=== PATIENT | male | born 1960 | race Caucasian/White ===

== ENCOUNTER 2016-06-29 17:29 | Inpatient (IN) | payer OTHER ==
[2016-06-29 17:43] VITALS: BMI 26.6
[2016-06-29 18:37] LABS: BASOPHIL 1.4 % (0-2.0); EOSINOPHIL 5.9 % (0-4.5); MCH 28.6 pg (25.7-33.7); MCHC 31.9 g/dl (32.0-35.9); MEAN CELL VOLUME 89.8 fl (80-96); MEAN PLT VOLUME 8.7 fl (7.5-11.1); NEUTROPHILS 66.1 % (42.8-82.8); PLATELET COUNT 225 K/MM3 (134-434); RDW 13.8 % (11.9-15.9)
[2016-06-29 19:11] LABS: ALBUMIN 3.5 g/dl (3.4-5.0); CALCIUM 7.9 mg/dL (8.5-10.1); CREATININE 5.3 mg/dL (0.7-1.3)
[2016-06-29 19:15] LABS: INR 1.13 (0.82-1.09); PROTHROMBIN TIME (PATIENT) 12.5 SEC (9.98-11.88)
[2016-06-29 19:16] LABS: BILIRUBIN,TOTAL 0.5 mg/dL (0.2-1.0); TOT PROT 6.1 g/dl (6.4-8.2); TROPONIN I 0.39 ng/ml (0.00-0.05)
--- NOTE | 2016-06-29 19:27 | PDOC ---
History of Present Illness - General History Source: Patient, Old Records Exam Limitations: No Limitations <Henry Heller - Last Filed: 06/29/16 21:08> - General History Source: Patient, Old Records Exam Limitations: No Limitations - History of Present Illness Initial Comments: 06/29/16 19:39 The patient is a 56 year old male, with a significant past medical history of AAA (last checked 6 months ago), current every-day cigarette smoker ( approximately 3-4 cigarettes/day), with a significant past medical history of atrial fibrillation,(+Coumadin) cardiomyopathy, hypertension, hypercholesterolemia and renal insufficiency (5+ creatinine; pre-dialysis, attributed to HTN), who presents to the emergency department with cough, hemoptysis, shortness of breath for the past week and abdominal distention for the past 2 weeks. He reports that his shortness of breath is usually onset on exertion. He states that his cough is productive of blood filled phlegm. He reports that he feels as if his abdominal bloating is causing his shortness of breath exacerbation. He notes that he saw his PMD recently and was scheduled to have an electrocardiogram but have not had it done yet. He denies any recent travel or sick contacts. The patient denies chest pain, headache and dizziness. Denies fever, chills, nausea, vomit, diarrhea and constipation. Denies dysuria, frequency, urgency and hematuria. Allergies: None Known Past Surgical History: Cardiac Cath. CABG. Right elbow surgery (10+ years ago) Social History: Current every-day cigarette smoker (approximately 3-4 cigarettes /day). Occasional ETOH use. He denies recreational drug use. Primary Care Physician: Dr. Trevor Bañuelos <Horace Gilmore - Last Filed: 06/29/16 22:22> - General Chief Complaint: Shortness of Breath Stated Complaint: SHORTNESS OF BREATH Time Seen by Provider: 06/29/16 18:28 Past History - Past Medical History Anemia: No Asthma: No Cancer: No Cardiac Disorders: Yes (CARDIOMYOPATHY, AAA) CVA: No COPD: No CHF: No Dementia: No Diabetes: No GI Disorders: No Disorders: Yes (DECREASED KIDNEY FUNCTION) HTN: Yes Hypercholesterolemia: No Kidney Stones: No Liver Disease: No Suicide Attempt (Hx): No Seizures: No Thyroid Disease: No - Surgical History Abdominal Surgery: No Appendectomy: No Cardiac Surgery: Yes (CARDIAC CATH, bypass) Cholecystectomy: No Lung Surgery: No Neurologic Surgery: No Orthopedic Surgery: Yes (surgery to right elbow 10 years ago) - Reproductive History Testicular Surgery: No - Immunization History Td Vaccination: Yes Immunization Up to Date: Yes - Psycho/Social/Smoking Cessation Hx Anxiety: No Suicidal Ideation: No Smoking History: Former smoker Have you smoked in the past 12 months: No Number of Cigarettes Smoked Daily: 2 If you are a former smoker, when did you quit?: 3 Cigars Per Day: 0 Information on smoking cessation initiated: No Hx Alcohol Use: No Drug/Substance Use Hx: No Substance Use Type: None Hx Substance Use Treatment: Yes <Henry Heller - Last Filed: 06/29/16 21:08> <Horace Gilmore - Last Filed: 06/29/16 22:22> - Past Medical History Allergies/Adverse Reactions: Allergies Allergy/AdvReac Type Severity Reaction Status Date / Time No Known Allergies Allergy Verified 06/29/16 17:43 Home Medications: Ambulatory Orders Metoprolol Succinate [Toprol XL -] 100 mg PO BID 01/17/14 Amlodipine Besylate [Norvasc -] 10 mg PO DAILY 08/18/15 Warfarin Sodium [Coumadin] 2.5 mg PO DAILY 08/18/15 Omeprazole 20 mg PO DAILY 06/29/16 Review of Systems - Review of Systems Able to Perform ROS?: Yes Comments:: 06/29/16 19:39 GENERAL/CONSTITUTIONAL: No fever or chills. No weakness. HEAD, EYES, EARS, NOSE AND THROAT: No change in vision. No ear pain or discharge. No sore throat. CARDIOVASCULAR: +Shortness of breath. No chest pain RESPIRATORY: +Cough, hemoptysis. No wheezing GASTROINTESTINAL: +Abdominal distention. No nausea, vomiting, diarrhea or constipation. GENITOURINARY: No dysuria, frequency, or change in urination. MUSCULOSKELETAL: No joint or muscle swelling or pain. No neck or back pain. SKIN: No rash NEUROLOGIC: No headache, vertigo, loss of consciousness, or change in strength/ sensation. ENDOCRINE: No increased thirst. No abnormal weight change HEMATOLOGIC/LYMPHATIC: No anemia, easy bleeding, or history of blood clots. ALLERGIC/IMMUNOLOGIC: No hives or skin allergy. <Horace Gilmore - Last Filed: 06/29/16 22:22> *Physical Exam - Vital Signs Last Vital Signs Temp Pulse Resp BP Pulse Ox 97.5 F L 112 H 20 156/113 98 06/29/16 17:39 06/29/16 17:39 06/29/16 17:39 06/29/16 17:39 06/29/16 17:39 <Henry Heller - Last Filed: 06/29/16 21:08> - Vital Signs Last Vital Signs Temp Pulse Resp BP Pulse Ox 97.5 F L 112 H 20 156/113 98 06/29/16 17:39 06/29/16 17:39 06/29/16 17:39 06/29/16 17:39 06/29/16 17:39 - Physical Exam Comments: 06/29/16 19:40 GENERAL: Awake, alert, and fully oriented, in no acute distress HEAD: No signs of trauma, normocephalic, atraumatic EYES: PERRLA, EOMI, sclera anicteric, conjunctiva clear ENT: Auricles normal inspection, hearing grossly normal, nares patent, oropharynx clear without exudates. Moist mucosa NECK: Normal ROM, supple, no lymphadenopathy, JVD, or masses LUNGS: No distress, speaks full sentences, clear to auscultation bilaterally HEART: +Irregularly irregular. Normal S1 and S2, no murmurs, rubs or gallops, peripheral pulses normal and equal bilaterally. ABDOMEN: Soft, nontender, normoactive bowel sounds. No guarding, no rebound. No masses EXTREMITIES: Normal inspection, Normal range of motion, no edema. No clubbing or cyanosis. NEUROLOGICAL: Cranial nerves II through XII grossly intact. Normal speech, normal gait, no focal sensorimotor deficits SKIN: Warm, Dry, normal turgor, no rashes or lesions noted. <Horace Gilmore - Last Filed: 06/29/16 22:22> Heart Score/ECG Review #1 ECG reviewed & interpreted by me at: 18:10 06/29/16 19:27 atrial fibrillation 122, no std/deann, QTC 507 msec, normal axis <Henry Heller - Last Filed: 06/29/16 21:08> ED Treatment Course - LABORATORY CBC & Chemistry Diagram: 06/29/16 18:30 06/29/16 18:05 - ADDITIONAL ORDERS Additional order review: Laboratory Results 06/29/16 06/29/16 06/29/16 18:30 18:05 18:05 INR 1.13 D Sodium 146 H Potassium 3.4 L Chloride 111 H Carbon Dioxide 26 Anion Gap 9 BUN 59 H D Creatinine 5.3 H Creat Clearance w eGFR 11.28 Random Glucose 99 Calcium 7.9 L Total Bilirubin 0.5 AST 31 D ALT 76 D Alkaline Phosphatase 96 Creatine Kinase 142 Troponin I 0.39 H B-Natriuretic Peptide 76158.85 H Total Protein 6.1 L Albumin 3.5 06/29/16 18:30 RBC 4.47 MCV 89.8 MCHC 31.9 L RDW 13.8 MPV 8.7 Neutrophils % 66.1 Lymphocytes % 18.0 D Monocytes % 8.6 Eosinophils % 5.9 H Basophils % 1.4 - RADIOLOGY Radiology Studies Ordered: Category Date Time Status ABDOMEN & PELVIS CT W/O CONTR [CT] Stat CT Scan 06/29/16 18:[address] WITHOUT CONTRAST [CT] Stat CT Scan 06/29/16 18:41 Taken <Henry Heller - Last Filed: 06/29/16 21:08> - LABORATORY CBC & Chemistry Diagram: 06/29/16 18:30 06/29/16 18:05 - ADDITIONAL ORDERS Additional order review: Laboratory Results 06/29/16 06/29/16 06/29/16 18:30 18:05 18:05 INR 1.13 D Sodium 146 H Potassium 3.4 L Chloride 111 H Carbon Dioxide 26 Anion Gap 9 BUN 59 H D Creatinine 5.3 H Creat Clearance w eGFR 11.28 Random Glucose 99 Calcium 7.9 L Total Bilirubin 0.5 AST 31 D ALT 76 D Alkaline Phosphatase 96 Creatine Kinase 142 Troponin I 0.39 H B-Natriuretic Peptide 45766.85 H Total Protein 6.1 L Albumin 3.5 06/29/16 18:30 RBC 4.47 MCV 89.8 MCHC 31.9 L RDW 13.8 MPV 8.7 Neutrophils % 66.1 Lymphocytes % 18.0 D Monocytes % 8.6 Eosinophils % 5.9 H Basophils % 1.4 - RADIOLOGY Radiograph Interpretation: 06/29/16 20:[address] without contrast Reviewed by; Dr. Kiesha Henson Impression: Cardiomegaly with small pleural effusions as well as minimal to mild bilateral lower lung field mosaic pattern interstitial thickening which may be on the basis of interstitial pulmonary vascular Congestion. In comparison to a chest MRA exam of 12/30/2013 the patient is status post interval median sternotomy with surgical repair of an ascending aortic cath dissection. Focal bulging is seen along the lateral border of the aortic arch which is difficult to accurately compare to the 2013 MRA exam although was present at least in part at that time. Several mildly prominent mediastinal lymph nodes are seen which are probably hyperplastic. Abdomen and pelvis CT without contrast Reviewed by: Dr. Kiesha Henson Impression: No CT evidence of acute abdomen/pelvic pathology. Several subcentimeter left hepatic lobe hypodense foci are noted probably representing cysts, less likely other pathology. Allowing for motion artifact on 02/05/2011 CT study these apparent cysts were probably present at that time withiut gross interval change. Interval development of cholelithiasis. No biliary tract dilatation is seen. Very small stable umbilical hernia containing fat only. Small stable bilateral inguinal hernias containing fat only. S/p Interval inferior vena cava filter insertion. <Horace Gilmore - Last Filed: 06/29/16 22:22> Medical Decision Making - Medical Decision Making 06/29/16 19:26 A portion of this note was documented by scribe services under my direction. I have reviewed the details of the note, within reason, and agree with the documentation with the following case summary and management plan written by me. Patient treated in the ED. Nursing notes are reviewed and incorporated into the medical decision-making. Vital signs reviewed. Peripheral IV access obtained by the nurse, laboratory studies are drawn and sent, reviewed and interpreted by myself. Vital Signs Temp Pulse Resp BP Pulse Ox 97.5 F L 112 H 20 156/113 98 06/29/16 17:39 06/29/16 17:39 06/29/16 17:39 06/29/16 17:39 06/29/16 17:39 56 year old male with past medical history of cigarette smoking, atrial fibrillation on Coumadin, cardiomyopathy, hypertension, hyperlipidemia, renal sufficiency with a creatinine baseline of 5, not on dialysis yet presents to the emergency department for 3 weeks of hemoptysis. The patient reports that he' s been coughing with hemoptysis. Denies chest pain or shortness of breath. 2 weeks ago, he had visited his primary care physician Dr. Murray who wanted the patient to be seen in the ED but he did not go. Since then, patient reports having abdominal bloating but reports moving his bowels normally. Denies any nausea or vomiting or fevers. Denies chest pain or shortness of breath. Patient is concerned about his AAA as he has a history of a 4.8 cm abdominal aortic aneurysm. He is willing to be worked up and even admitted for further workup. He denies any tuberculosis or pulmonary embolism history. We'll need to further investigate this hemoptysis history. It may be potentially from his Coumadin. However, we'll need to do a x-raying CAT scan to investigate for potentially upper lobe infiltrates. If that is the case, we'll need to rule out tuberculosis. Less likely pulmonary embolism given that the patient is on Coumadin. However, patient is not eligible for CT PE study given his chronic renal sufficiency. May need to consider VQ scan as an inpatient. Patient is also noted to be in atrial fibrillation with mildly rapid ventricular response. We'll need to consider IV diltiazem. Ultimately, the patient should be admitted to the hospital for further evaluation. 06/29/16 21:08 CBC, BMP 06/29/16 18:30 06/29/16 18:05 CMP Sodium 146 mmol/L (136-145) H 06/29/16 18:05 Potassium 3.4 mmol/L (3.5-5.1) L 06/29/16 18:05 Chloride 111 mmol/L (98-107) H 06/29/16 18:05 Carbon Dioxide 26 mmol/L (21-32) 06/29/16 18:05 Anion Gap 9 (8-16) 06/29/16 18:05 BUN 59 mg/dL (7-18) H D 06/29/16 18:05 Creatinine 5.3 mg/dL (0.7-1.3) H 06/29/16 18:05 Creat Clearance w eGFR 11.28 (>60) 06/29/16 18:05 Random Glucose 99 mg/dL (74-106) 06/29/16 18:05 Calcium 7.9 mg/dL (8.5-10.1) L 06/29/16 18:05 Total Bilirubin 0.5 mg/dL (0.2-1.0) 06/29/16 18:05 AST 31 U/L (15-37) D 06/29/16 18:05 ALT 76 U/L (12-78) D 06/29/16 18:05 Alkaline Phosphatase 96 U/L (45-117) 06/29/16 18:05 Creatine Kinase 142 IU/L (39-308) 06/29/16 18:05 Troponin I 0.39 ng/ml (0.00-0.05) H 06/29/16 18:05 B-Natriuretic Peptide 64734.85 pg/ml (5-125) H 06/29/16 18:05 Total Protein 6.1 g/dl (6.4-8.2) L 06/29/16 18:05 Albumin 3.5 g/dl (3.4-5.0) 06/29/16 18:05 06/29/16 21:12 CT chest and abdomen and pelvis reviewed. No abdominal pathology other than liver cysts. Chest CT with cardiomegaly and small pleural effusions bilaterally. Elevated BNP. Likely CHF and CRI. 40 mg IV lasix ordered (pt still urinates). Troponin is 0.39. Last troponin from Mar 2016 was elevated in mid.30s 06/29/16 21:[address] Dias. She accepts to telemetry admission. Requests Dr. Dash, Dr. Bates, Dr. Frederick Greenwood. <Henry Heller - Last Filed: 06/29/16 21:08> - Medical Decision Making 06/29/16 21:28 Dr. Edda Murray was called regarding the patient at 8:54pm. Dr. Funes covering. Dr. Funes was consulted regarding the patient at 9:00pm. [phone] Dr. Hugo Bates was called regarding the patient at 9:22pm. Dr. Morocho covering. Dr. Morocho was consulted regarding the patient at 9:23pm [phone] Dr. Irish Steve was called regarding the patient at 9:16pm Dr. Steve was consulted regarding the patient at 9:58pm [phone] Dr. Dash was called regarding the patient at 9:17pm. Dr. Peacock covering. Dr. Peacock was consulted regarding the patient at 9:36pm [phone] <Horace Gilmore - Last Filed: 06/29/16 22:22> *DC/Admit/Observation/Transfer - Discharge Dispostion Admit: Yes <Henry Heller - Last Filed: 06/29/16 21:08> - Attestations Scribe Attestion: 06/29/16 19:39 Documentation prepared by Horace Gilmore, acting as medical service technician for Henry Heller MD. <Horace Gilmore - Last Filed: 06/29/16 22:22> Diagnosis at time of Disposition: CHF (congestive heart failure) Qualifiers: Congestive heart failure type: unspecified congestive heart failure type Congestive heart failure chronicity: acute Qualified Code(s): I50.9 - Heart failure, unspecified - Referrals
[2016-06-29] MEDS ORDERED: FUROSEMIDE 40 MG/4 ML INJECTABLE VIAL IVPB ONE ×2 (20:27→21:58)
[2016-06-29] MEDS ORDERED: FUROSEMIDE 40 MG/4 ML INJECTABLE VIAL ONE ×2 (20:37→22:38)
[2016-06-29] MEDS ORDERED: ASPIRIN 81 MG CHEWABLE TABLETS PO ONE (21:16)
[2016-06-29] MEDS ORDERED: METOPROLOL SUCCINATE 50 MG TAB.SR.24H (FP) ONE ×2 (22:36→22:42)
[2016-06-29] MEDS ORDERED: ASPIRIN 81 MG CHEWABLE TABLETS ONE (22:38)
[2016-06-29] MEDS ORDERED: ASPIRIN 325 MG ENTERIC COATED TABLET (FP) ONE (22:42)
[2016-06-29] MEDS ORDERED: METOPROLOL SUCCINATE 100 MG TAB.SR.24H (FP) PO ONE (22:54)
[2016-06-30] MEDS ORDERED: guaiFENesin 200 MG/10 ML 10 ML UNIT-DOSE CUPS PO PRN (00:27)
[2016-06-30] MEDS ORDERED: WARFARIN NA 3 MG TABLET PO ONE (00:30)
[2016-06-30] MEDS ORDERED: amLODIPine BESYLATE 10 MG TABLET (FP) PO SCH (00:30)
[2016-06-30 01:43] VITALS: PULSE 108
[2016-06-30 03:10] LABS: TROPONIN I 0.39 ng/ml (0.00-0.05)
[2016-06-30 07:14] LABS: INR 1.29 (0.82-1.09); PROTHROMBIN TIME (PATIENT) 14.3 SEC (9.98-11.88)
[2016-06-30 07:56] VITALS: BP 135/89; TEMP 97.6
[2016-06-30] MEDS ORDERED: METOPROLOL SUCCINATE 100 MG TAB.SR.24H (FP) PO SCH (10:00)
--- NOTE | 2016-06-30 12:25 | EKG ---
Test Reason : Blood Pressure : / mmHG Vent. Rate : 122 BPM Atrial Rate : 117 BPM P-R Int : 000 ms QRS Dur : 102 ms QT Int : 356 ms P-R-T Axes : 000 034 180 degrees QTc Int : 507 ms POOR DATA QUALITY, INTERPRETATION MAY BE ADVERSELY AFFECTED ATRIAL FIBRILLATION WITH RAPID VENTRICULAR RESPONSE POSSIBLE ANTERIOR INFARCT , AGE UNDETERMINED ABNORMAL ECG WHEN COMPARED WITH ECG OF 18-APR-2016 17:27, NONSPECIFIC T WAVE ABNORMALITY, WORSE IN INFERIOR LEADS Confirmed by DELMIS PERKINS MD ([id number]) on 06/30/2016 12:25:32 PM Referred By: Confirmed By:DELMIS PERKINS MD
[2016-06-30] MEDS ORDERED: WARFARIN NA 2.5 MG TABLET (FP) PO SCH (18:00)
--- NOTE | 2016-06-30 21:14 | DS ---
Physical Examination Vital Signs: Vital Signs Temperature 97.6 F 06/30/16 06:40 Pulse Rate 108 H 06/30/16 06:40 Respiratory Rate 18 06/30/16 06:40 Blood Pressure 135/89 06/30/16 06:40 O2 Sat by Pulse Oximetry (%) 96 06/29/16 23:55 Discharge Summary Reason For Visit: CHF Current Active Problems CHF (congestive heart failure) (Acute) Hospital Course: PT LEFT BREFORE BEING SEEN - Instructions Referrals: Edda Murray MD [Primary Care Provider] - Disposition: AGAINST MEDICAL ADVICE - Home Medications Comprehensive Discharge Medication List: Ambulatory Orders Metoprolol Succinate [Toprol XL -] 100 mg PO DAILY 01/17/14 Amlodipine Besylate [Norvasc -] 10 mg PO DAILY 08/18/15 Warfarin Sodium [Coumadin] 2.5 mg PO DAILY 08/18/15 Omeprazole 20 mg PO DAILY 06/29/16
== END 2016-06-30 09:05 | disposition left against medical advice (07) | DRG 293 ==
LOC: JER 17:29 → JERBED 21:00 → UNDOADMIN 21:29 → J4S 06-30 00:20
PROVIDERS: ADMIT Family Medicine; ATTEND Family Medicine
DX: I13.0 Hypertensive heart and chronic kidney disease with heart failure and stage 1 through stage 4 chronic kidney disease, or unspecified chronic kidney disease (principal); I48.91 Unspecified atrial fibrillation; Z79.01 Long term (current) use of anticoagulants; E78.00 Pure hypercholesterolemia, unspecified; I42.9 Cardiomyopathy, unspecified; F17.210 Nicotine dependence, cigarettes, uncomplicated; I50.9 Heart failure, unspecified; N18.9 Chronic kidney disease, unspecified; K40.20 Bilateral inguinal hernia, without obstruction or gangrene, not specified as recurrent; K76.89 Other specified diseases of liver; I71.4 Abdominal aortic aneurysm, without rupture; Z95.1 Presence of aortocoronary bypass graft; Z95.5 Presence of coronary angioplasty implant and graft
CPT/HCPCS: 36415; 71010-TC; 71250-TC; 74176-TC; 80053; 82550; 83880; 84484; 85025; 85610; 93005; 93010; 99285-25

== ENCOUNTER 2016-07-05 19:38 | Inpatient (IN) | payer OTHER ==
[2016-07-05 20:09] VITALS: BMI 27.3
--- NOTE | 2016-07-05 20:11 | PDOC ---
[id number] No Limitations - History of Present Illness Initial Comments: 07/05/16 20:33 The patient is a 56 year old male, with a significant past medical history of AAA (last checked 6 months ago), current every-day cigarette smoker ( approximately 3-4 cigarettes/day), with a significant past medical history of atrial fibrillation,(+Coumadin) cardiomyopathy, hypertension, hypercholesterolemia and renal insufficiency (5+ creatinine; pre-dialysis, attributed to HTN), who presents to the ED sent by Dr. Funes for worsening CHF. Patient was seen in the ER on 06/29/16 for cough, hemoptysis, and SOB, where he had extensive work-up done including chest CT that revealed cardiomegaly and small pleural effusions bilaterally. Patient was admitted for CHF and placed on lasix, however signed out AMA the following day. He returns today after visiting his PMDs office for SOB and chest congestion and was then told to come into the ER. He has complaints of chest congestion, leg swelling, facial swelling over the past 4 days. His facial swelling is resolving on its own. He denies chest pain, SOB, diaphoresis, jaw pain, shoulder pain, arm pain, nausea, and vomiting. He denies any drug use today and states his last se of cocaine was 1 month ago. Patient states he ate a sandwich, orange, and banana today. The patient denies fever, chills, cough, abdominal pain, and diarrhea. The patient denies dysuria, hematuria, urgency, and frequency. Allergies: NKDA Past Surgical History: Cardiac Cath. CABG. Right elbow surgery (10+ years ago) Social History: Current every-day cigarette smoker (approximately 3-4 cigarettes /day). Occasional ETOH use. Drug recreational use (cocaine - last use 1 month ago). Primary Care Physician: Dr. Trevor Bañuelos <Misty Dykes - Last Filed: 07/06/16 00:45> <Nenita Lambert - Last Filed: 07/06/16 02:12> - General Chief Complaint: Congestive Heart Failure Stated Complaint: PCP ADMIT Time Seen by Provider: 07/05/16 20:11 Past History <Misty Dykes - Last Filed: 07/06/16 00:45> - Past Medical History Anemia: No Asthma: No Cancer: No Cardiac Disorders: Yes (CARDIOMYOPATHY, AAA, AFIB) CVA: No COPD: No CHF: No Dementia: No Diabetes: No GI Disorders: No Disorders: Yes (DECREASED KIDNEY FUNCTION) HTN: Yes Hypercholesterolemia: No Kidney Stones: No Liver Disease: No Suicide Attempt (Hx): No Seizures: No Thyroid Disease: No - Surgical History Abdominal Surgery: No Appendectomy: No Cardiac Surgery: Yes (CARDIAC CATH, bypass) Cholecystectomy: No Lung Surgery: No Neurologic Surgery: No Orthopedic Surgery: Yes (surgery to right elbow 10 years ago) - Reproductive History Testicular Surgery: No - Immunization History Td Vaccination: Yes Immunization Up to Date: Yes - Psycho/Social/Smoking Cessation Hx Anxiety: No Suicidal Ideation: No Smoking History: Former smoker Have you smoked in the past 12 months: Yes Number of Cigarettes Smoked Daily: 2 If you are a former smoker, when did you quit?: 3 months ago Cigars Per Day: 0 Information on smoking cessation initiated: No Hx Alcohol Use: No Drug/Substance Use Hx: No Substance Use Type: None Hx Substance Use Treatment: Yes <Nenita Lambert - Last Filed: 07/06/16 02:12> - Past Medical History Allergies/Adverse Reactions: Allergies Allergy/AdvReac Type Severity Reaction Status Date / Time No Known Allergies Allergy Verified 07/05/16 19:59 Home Medications: Ambulatory Orders Metoprolol Succinate [Toprol XL -] 100 mg PO DAILY 01/17/14 Amlodipine Besylate [Norvasc -] 10 mg PO DAILY 08/18/15 Warfarin Sodium [Coumadin] 2.5 mg PO DAILY 08/18/15 Omeprazole 20 mg PO DAILY 06/29/16 Review of Systems - Review of Systems Able to Perform ROS?: Yes Comments:: 07/05/16 20:42 CONSTITUTIONAL: Absent: fever, chills, diaphoresis, generalized weakness, malaise, loss of appetite HEENT: +facial swelling Absent: rhinorrhea, nasal congestion, throat pain, throat swelling, difficulty swallowing, mouth swelling, ear pain, eye pain, visual Changes CARDIOVASCULAR: +leg swelling Absent: chest pain, syncope, palpitations, irregular heart rate, lightheadedness RESPIRATORY: +chest congestion, SOB Absent: cough, dyspnea with exertion, orthopnea, wheezing, stridor, hemoptysis GASTROINTESTINAL: Absent: abdominal pain, abdominal distension, nausea, vomiting, diarrhea, constipation, melena, hematochezia GENITOURINARY: Absent: dysuria, frequency, urgency, hesitancy, hematuria, flank pain, genital pain MUSCULOSKELETAL: Absent: myalgia, arthralgia, joint swelling SKIN: Absent: rash, itching, pallor ENDOCRINE: Absent: unexplained weight gain, unexplained weight loss, heat intolerance, cold intolerance NEUROLOGIC: Absent: headache, focal weakness or paresthesias, dizziness, unsteady gait, seizure, mental status changes, bladder or bowel incontinence PSYCHIATRIC: Absent: anxiety, depression, suicidal or homicidal ideation, hallucinations. <Misty Dykes - Last Filed: 07/06/16 00:45> *Physical Exam - Vital Signs Last Vital Signs Temp Pulse Resp BP Pulse Ox 97.9 F 118 H 21 138/106 94 L 07/05/16 20:00 07/05/16 20:30 07/05/16 20:30 07/05/16 20:30 07/05/16 20:30 - Physical Exam Comments: 07/06/16 00:46 GENERAL: Pt is afebrile. Well developed, well nourished. Awake and alert. No acute distress. HEENT: Normocephalic, atraumatic. PERRLA, EOMI. No conjunctival pallor. Sclera are non- icteric. Moist mucous membranes. Oropharynx is clear. NECK: Supple. Full ROM. No JVD. Carotid pulses 2+ and symmetric, without bruits. No thyromegaly. No lymphadenopathy. CARDIOVASCULAR: Irregularly irregular. No murmurs, rubs, or gallops. Distal pulses are 2+ and symmetric. Well healed midsternal surgical scar. PULMONARY: No evidence of respiratory distress. Lungs clear to auscultation bilaterally. No wheezing, rales or rhonchi. ABDOMINAL: Soft. Non-tender. Non-distended. No rebound or guarding. No organomegaly. Normoactive bowel sounds. MUSCULOSKELETAL Normal range of motion at all joints. No bony deformities or tenderness. No CVA tenderness. EXTREMITIES: No cyanosis. No clubbing. Bilateral pitting edema, left ankle more swollen than right ankle. No calf tenderness. SKIN: Warm and dry. Normal capillary refill. No rashes. No jaundice. NEUROLOGICAL: Alert, awake, appropriate. Cranial nerves 2-12 intact. No deficits to light touch and temperature in face, upper extremities and lower extremities. No motor deficits in the in face, upper extremities and lower extremities. Normoreflexic in the upper and lower extremities. Normal speech. PSYCHIATRIC: Cooperative. Good eye contact. Appropriate mood and affect. <Misty Dykes - Last Filed: 07/06/16 00:45> - Vital Signs Last Vital Signs Temp Pulse Resp BP Pulse Ox 97.9 F 62 18 140/80 99 07/05/16 20:00 07/05/16 20:00 07/05/16 20:00 07/05/16 20:00 07/05/16 20:00 <Nenita Lambert - Last Filed: 07/06/16 02:12> ED Treatment Course - LABORATORY CBC & Chemistry Diagram: 07/05/16 21:00 07/05/16 21:00 <Misty Dykes - Last Filed: 07/06/16 00:45> - LABORATORY CBC & Chemistry Diagram: 07/05/16 21:00 07/05/16 21:00 <Nenita Lambert - Last Filed: 07/06/16 02:12> Medical Decision Making - Medical Decision Making 07/05/16 22:29 Patient's case discussed with Dr. Isidro Maria at 22:29 <Misty Dykes - Last Filed: 07/06/16 00:45> - Medical Decision Making 07/06/16 01:34 Pt comes in because he still has SOB. States that he was admitted in the hospital for SOB last week and that he signed AMA, as it seemed all the docs were doing was giving him lasix, and he felt that the talent acquisition sourcer and moth exterminator never came to see him. Pt returned to his doctors office today for SOB, and he was asked to retunr to the ER for admission, as he needs to be worked up by nephrology and talent acquisition sourcer in the hospital. He has years of renal insufficiency that is progressing to renal failure. In the ER, pt doesn't appear so bad; lungs are relatively clear on exam, however pt states that he cannot walk without getting SOB. No chest pain and no flank pain and no fever. Pt's cough and hemoptysis resolved. Pt's CXR has clear lung carballo and cardiomegaly. 07/06/16 02:08 Labs are similar to old ones on file, however BNP is getting worse. Trop remains elevated secondary to uremia. CPK is normal, BUN/Cr are elevated. 07/06/16 02:12 EKG on arrival shows rapid atrial fibrillation. <Nenita Lambert - Last Filed: 07/06/16 02:12> *DC/Admit/Observation/Transfer - Attestations Scribe Attestion: 07/05/16 20:42 Documentation prepared by Misty Dykes, acting as medical csr for Nenita Lambert MD <Misty Dykes - Last Filed: 07/06/16 00:45> - Discharge Dispostion Admit: Yes <Nenita Lambert - Last Filed: 07/06/16 02:12> Diagnosis at time of Disposition: Atrial fibrillation, CHF (congestive heart failure), Chronic renal insufficiency - Referrals
[2016-07-05] MEDS ORDERED: FUROSEMIDE 40 MG/4 ML INJECTABLE VIAL IVPUSH ONE (20:25)
[2016-07-05] MEDS ORDERED: SODIUM CHLORIDE 0.9% 500 ML INFUS.BAG IV ONE (20:26)
[2016-07-05] MEDS ORDERED: NITROGLYCERIN 2% OINTMENT - 1GM PACKET TD ONE ×2 (20:28→20:33)
[2016-07-05] MEDS ORDERED: FUROSEMIDE 40 MG/4 ML INJECTABLE VIAL ONE (20:34)
[2016-07-05 21:09] LABS: BASOPHIL 0.8 % (0-2.0); EOSINOPHIL 7.4 % (0-4.5); MCH 29.2 pg (25.7-33.7); MCHC 32.5 g/dl (32.0-35.9); MEAN PLT VOLUME 9.2 fl (7.5-11.1); NEUTROPHILS 65.6 % (42.8-82.8); PLATELET COUNT 176 K/MM3 (134-434); RDW 14.3 % (11.9-15.9)
[2016-07-05 21:32] LABS: ALBUMIN 3.4 g/dl (3.4-5.0); CALCIUM 7.9 mg/dL (8.5-10.1); CREATININE 4.7 mg/dL (0.7-1.3)
[2016-07-05 21:36] LABS: BILIRUBIN,TOTAL 0.5 mg/dL (0.2-1.0); TOT PROT 6.2 g/dl (6.4-8.2); TROPONIN I 0.33 ng/ml (0.00-0.05)
[2016-07-05 21:44] LABS: URINE APPEARANCE CLEAR; URINE BILIRUBIN NEGATIVE (NEGATIVE); URINE BLOOD NEGATIVE (NEGATIVE); URINE COLOR LTYELLOW; URINE GLUCOSE (UA) 1+ (NEGATIVE); URINE KETONE NEGATIVE (NEGATIVE); URINE LEUK ESTERASE NEGATIVE (NEGATIVE); URINE NITRITE NEGATIVE (NEGATIVE); URINE UROBILINOGEN NEGATIVE E.U./dl (0.2-1.0)
[2016-07-05 21:45] LABS: PROTHROMBIN TIME (PATIENT) 47.7 SEC (9.98-11.88)
[2016-07-05 21:47] LABS: URINE PROTEIN 2+ (NEGATIVE)
[2016-07-05 21:48] LABS: URINE RBC <1 /hpf (0-3); URINE WBC 1 /hpf (3-5)
[2016-07-05 22:09] LABS: INR 4.21 (0.82-1.09)
[2016-07-06] MEDS ORDERED: ZOLPIDEM TARTRATE 5 MG TABLET PO ONE (02:11)
[2016-07-06] MEDS ORDERED: dilTIAZem HCL 50 MG/10 ML - 10 ML VIAL IVPUSH ONE ×2 (07:19→08:01)
[2016-07-06] MEDS ORDERED: dilTIAZem HCL 125 MG/25 ML - 25 ML VIAL ONE ×2 (07:22→08:07)
[2016-07-06] MEDS ORDERED: ALBUTEROL SO4 0.083% IH SOL 2.5 MG/3 ML VIAL.NEB. NEB ONE (07:26)
[2016-07-06 07:46] LABS: EOSINOPHIL 11.3 % (0-4.5); MCH 30.1 pg (25.7-33.7); MCHC 33.5 g/dl (32.0-35.9); MEAN CELL VOLUME 89.9 fl (80-96); MEAN PLT VOLUME 8.9 fl (7.5-11.1); PLATELET COUNT 143 K/MM3 (134-434); RDW 14.1 % (11.9-15.9); WHITE BLOOD COUNT 6.3 K/mm3 (4.0-10.0)
[2016-07-06 07:51] LABS: INR 3.88 (0.82-1.09); PROTHROMBIN TIME (PATIENT) 43.9 SEC (9.98-11.88)
[2016-07-06] MEDS ORDERED: dilTIAZem HCL 60 MG TABLET (FP) PO ONE (08:01)
[2016-07-06] MEDS ORDERED: dilTIAZem HCL 60 MG TABLET (FP) ONE (08:02)
--- NOTE | 2016-07-06 08:03 | PDOC ---
*Physical Exam - Vital Signs Last Vital Signs Temp Pulse Resp BP Pulse Ox 97.8 F 104 H 20 146/129 95 07/06/16 07:00 07/06/16 07:25 07/06/16 07:25 07/06/16 07:25 07/06/16 07:25 - Physical Exam Comments: 07/06/16 08:01 irregular tachycardia at 135, BP elevated 150 systolic ED Treatment Course - LABORATORY CBC & Chemistry Diagram: 07/06/16 07:11 07/05/16 21:00 - ADDITIONAL ORDERS Additional order review: Laboratory Results 07/05/16 07/05/16 07/05/16 21:15 21:00 21:00 INR 4.21 H* D PTT (Actin FS) Sodium Potassium Chloride Carbon Dioxide Anion Gap BUN Creatinine Creat Clearance w eGFR Random Glucose Calcium Total Bilirubin AST ALT Alkaline Phosphatase Creatine Kinase Creatine Kinase Index CK-MB (CK-2) CK-MB (CK-2) Rel Index Cancelled Troponin I B-Natriuretic Peptide Total Protein Albumin Urine Color Ltyellow Urine Appearance Clear Urine pH 6.0 Ur Specific Jackhorn 1.016 Urine Protein 2+ H Urine Glucose (UA) 1+ H Urine Ketones Negative Urine Blood Negative Urine Nitrite Negative Urine Bilirubin Negative Urine Urobilinogen Negative Ur Leukocyte Esterase Negative Urine RBC <1 Urine WBC 1 Ur Epithelial Cells Rare 07/05/16 07/05/16 07/05/16 21:00 21:00 21:00 INR PTT (Actin FS) 45.2 H Sodium 144 Potassium 3.3 L Chloride 109 H Carbon Dioxide 26 Anion Gap 9 BUN 51 H Creatinine 4.7 H Creat Clearance w eGFR 12.96 Random Glucose 100 Calcium 7.9 L Total Bilirubin 0.5 AST 14 L D ALT 35 D Alkaline Phosphatase 87 Creatine Kinase 170 D Creatine Kinase Index 2.3 CK-MB (CK-2) 3.889 H CK-MB (CK-2) Rel Index Troponin I 0.33 H B-Natriuretic Peptide 48492.24 H Total Protein 6.2 L Albumin 3.4 Urine Color Urine Appearance Urine pH Ur Specific Jackhorn Urine Protein Urine Glucose (UA) Urine Ketones Urine Blood Urine Nitrite Urine Bilirubin Urine Urobilinogen Ur Leukocyte Esterase Urine RBC Urine WBC Ur Epithelial Cells 07/05/16 21:00 RBC 4.35 MCV 90.0 MCHC 32.5 RDW 14.3 MPV 9.2 Neutrophils % 65.6 Lymphocytes % 12.8 D Monocytes % 13.4 H Eosinophils % 7.4 H Basophils % 0.8 - Medications Given in the ED: ED Medications Discontinued Medications Generic Name Dose Route Start Last Admin Trade Name Juanis PRN Reason Stop Dose Admin Diltiazem HCl 15 mg 07/06/16 07:19 07/06/16 07:22 Cardizem Injection - IVPUSH 07/06/16 07:20 15 mg ONCE ONE Administration Diphenhydramine HCl 50 mg 07/06/16 05:46 07/06/16 06:08 Benadryl Injection - IVPB 07/06/16 05:47 50 mg ONCE ONE Administration Furosemide 40 mg 07/05/16 20:25 07/05/16 21:05 Lasix Injection - IVPUSH 07/05/16 20:26 40 mg ONCE ONE Administration Nitroglycerin 0.5 inch 07/05/16 20:28 07/05/16 21:06 Nitro-Bid 2% Paste - TD 07/05/16 20:29 0.5 inch ONCE ONE Administration Sodium Chloride 250 ml 07/05/16 20:26 07/05/16 21:05 Normal Saline - IV 07/05/16 20:27 250 ml ONCE ONE Administration Zolpidem Tartrate 10 mg 07/06/16 02:11 07/06/16 02:28 Ambien - PO 07/06/16 02:12 10 mg ONCE ONE Administration Medical Decision Making - Critical Care Time Total Critical Care Time (minutes): 45 Critical Care Statement: The care of this patient involved high complexity decision making to prevent further life threatening deterioration of the patient 's condition and/or to evalute & treat vital organ system(s) failure or risk of failure. - Medical Decision Making 07/06/16 08:02 56-year-old male who presented with CHF exacerbation, was admitted to telemetry and is awaiting a bed. Called to bedside to evaluate patient for rapid atrial fibrillation. Vital signs as noted. Initial bolus of Cardizem 15 mg intravenously temporarily improved heart rate to 102, tolerated well in terms of blood pressure still at 140 systolic. Heart rate returned to 135, blood pressure remains elevated, we'll give another dose of 15 mg Cardizem intravenously with oral dose. Dr. Morocho of cardiology has been consulted and called. *DC/Admit/Observation/Transfer Diagnosis at time of Disposition: Atrial fibrillation, CHF (congestive heart failure), Chronic renal insufficiency
[2016-07-06 08:08] LABS: ALBUMIN 3.1 g/dl (3.4-5.0); CALCIUM 7.7 mg/dL (8.5-10.1)
[2016-07-06 08:14] LABS: BILIRUBIN,TOTAL 0.6 mg/dL (0.2-1.0); CREATININE 4.3 mg/dL (0.7-1.3); TOT PROT 5.5 g/dl (6.4-8.2); TROPONIN I 0.34 ng/ml (0.00-0.05)
[2016-07-06] MEDS ORDERED: amLODIPine BESYLATE 5 MG TABLET (FP) ONE (09:28)
[2016-07-06] MEDS ORDERED: FUROSEMIDE 40 MG/4 ML INJECTABLE VIAL ONE (09:28)
[2016-07-06] MEDS: FUROSEMIDE 40 MG/4 ML INJECTABLE VIAL IVPUSH SCH (09:29)
[2016-07-06] MEDS ORDERED: amLODIPine BESYLATE 10 MG TABLET (FP) PO SCH (10:00)
--- NOTE | 2016-07-06 11:07 | CONSULT ---
Consult - text type - Consultation Consultation Note: Renal Consult for CKD Stage 5/Volume Overload This is a 56 year old Gentleman with PMhx of CKD 4/5, Hypertension, AAA, Afib on a/c, Hx of DVT, CHF, Current smoker who presented to the ED at the request of his PMD with worry for CHF and found to have BUN/cr of 51/4.7. Pt s/p ED visit last week for acute CHF that required IV diuretics but pt signed out AMA. Cr was 6.3 during prior visit. Pt follows with Dr. Irish Wynn for his kidney function. Pt denies any nsaids, recent contrast exposure. No flank pain, dark urine. No SOB or chest pain at this time. No confusion or lethargy. No N/V/D. No fever or chills. Pt was not on diuretics at home. PMHx: as above Allergies: NKDA Social Hx: + Tobacco. Family hx: NC ROS: as per HPI, all other ROS negative Home Meds: Medication Instructions Recorded Metoprolol Succinate [Toprol XL -] 100 mg PO DAILY 01/17/14 Amlodipine Besylate [Norvasc -] 10 mg PO DAILY 08/18/15 Warfarin Sodium [Coumadin] 2.5 mg PO DAILY 08/18/15 Omeprazole 20 mg PO DAILY 06/29/16 Vital Signs Temperature 97.8 F 07/06/16 07:00 Pulse Rate 95 H 07/06/16 08:34 Respiratory Rate 18 07/06/16 08:34 Blood Pressure 124/90 07/06/16 08:34 O2 Sat by Pulse Oximetry (%) 99 07/06/16 08:34 Intake & Output 07/03/16 07/04/16 07/05/16 07/06/16 23:59 23:59 23:59 23:59 Weight 185 lb Gen: NAD, awake and alert HEENT: NC/AT, MMM, No JVD CVS: RRR, No M/R Lungs: Dec BS at lung bases Abd: soft NT/ND Ext: Trace to 1+ edema : No bladder distension Neuro: AAOX3, no focal defects CBC, BMP 07/06/16 07:11 07/06/16 07:11 Current Medications Amlodipine Besylate (Norvasc -) 10 mg PO DAILY [facility] Last Admin: 07/06/16 09:29 Dose: 10 mg Furosemide (Lasix Injection -) 40 mg IVPUSH DAILY [facility] Last Admin: 07/06/16 09:29 Dose: 40 mg Metoprolol Succinate (Toprol Xl -) 100 mg PO DAILY [facility] A/P 56 year old Gentleman with PMhx of CKD 4/5, Hypertension, AAA, Afib on a/c, Hx of DVT, CHF, Current smoker who presented to the ED at the request of his PMD with worry for CHF and found to have BUN/cr of 51/4.7 #CKD Stage 5 with fluctuating Cr over the past several months Etiology of CKD is Hypertensive Nephropathy as per History Varying Cr values likely related to volume status (pt with acute decompenated CHF last admission and Cr was 6.3) No acute indication for [employer] at this time but will need dialysis planning Check UA, UPCR, Renal US Pt would benefit from diuretics to prevent volume overload Avoid nsaids, Philip/ARBs Avoid contrast Dose all meds for Cr Cl less then 15 #CHF/AAA Check ECHO Start Lasix 40mg Daily (likely will need to titrate up given very low GFR) Cardiology evaluation #Hypokalemia secondary to diuretics and renal K loss give KCL 40meq x 1 Monitor K and Mg levels #Hypertension Continue Amlodpine and Metoprolol #Afib on Warfain #Hx of DVT on Warfarin Thank you Will follow Amari Arredondo DO
[2016-07-06] MEDS ORDERED: POTASSIUM CHLORIDE TABS 20 MEQ TABLET.ER (FP) PO ONE ×2 (11:11→13:37)
[2016-07-06] MEDS: METOPROLOL SUCCINATE 100 MG TAB.SR.24H (FP) PO SCH ×3 (11:42→22:34)
--- NOTE | 2016-07-06 11:55 | EKG ---
Test Reason : Blood Pressure : / mmHG Vent. Rate : 116 BPM Atrial Rate : 096 BPM P-R Int : 000 ms QRS Dur : 106 ms QT Int : 322 ms P-R-T Axes : 000 -48 169 degrees QTc Int : 447 ms ATRIAL FIBRILLATION WITH RAPID VENTRICULAR RESPONSE WITH PREMATURE VENTRICULAR OR ABERRANTLY CONDUCTED COMPLEXES LEFT AXIS DEVIATION INCOMPLETE LEFT BUNDLE BRANCH BLOCK ABNORMAL ECG WHEN COMPARED WITH ECG OF 29-JUN-2016 18:03, QRS AXIS SHIFTED LEFT Confirmed by ELIN CARRASCO, CHARLES ([id number]) on 07/06/2016 11:55:18 AM Referred By: Confirmed By:CHARLES WORTHINGTON MD
[2016-07-06] MEDS ORDERED: METOPROLOL SUCCINATE 50 MG TAB.SR.24H (FP) ONE ×2 (15:26→22:23)
[2016-07-06 15:28] LABS: TROPONIN I 0.34 ng/ml (0.00-0.05)
--- NOTE | 2016-07-06 15:37 | CONSULT ---
Consult Consult Specialty:: Cardiology Referred by:: Isidro Maria MD Reason for Consultation:: Rapid afib, PVC - History of Present Illness Chief Complaint: Exertional fatigue History of Present Illness: This is a 56 year old Gentleman with h/o ascending aortic dissection with tamponade s/p hemiarch repair, suspension of [place] AV and pericardial window 2013, angina pectoris, CKD 4/5, Hypertension/HCVD, HLD, Afib on a/c, Hx of DVT, non-ischemic cardiomyopathy, current smoker, cocaine abuse last 1 month ago, referred for exertional fatigue and found to be in rapid afib 120-130s, denies SOB, chest pain, near or true syncope, palpitations, orthopnea, PND or LE edema. Previous patient of Dr. Jimy Morales of [facility], but has not seen for 4 years. He reports medication and diet compliance, admits to cocaine abuse last 1 month ago, abstinent since then. PMHx: as above Allergies: NKDA Social Hx: + Tobacco, + cocaine 1 month ago. Family hx: NC ROS: as per HPI, all other ROS negative - History Source History Provided By: Patient Limitations to Obtaining History: No Limitations - Past Medical History Cardio/Vascular: Yes: AFIB, CAD, CHF, HTN, Hyperlipdemia, Mitral Insufficiency - Past Surgical History Past Surgical History: Yes: CABG - Alcohol/Substance Use Hx Alcohol Use: No - Smoking History Smoking history: Former smoker Have you smoked in the past 12 months: Yes Aproximately how many cigarettes per day: 2 If you are a former smoker, when did you quit?: 3 months ago Home Medications - Allergies Allergies/Adverse Reactions: Allergies Allergy/AdvReac Type Severity Reaction Status Date / Time No Known Allergies Allergy Verified 07/05/16 19:59 - Home Medications Home Medications: Ambulatory Orders Metoprolol Succinate [Toprol XL -] 100 mg PO BID 01/17/14 Amlodipine Besylate [Norvasc -] 10 mg PO DAILY 08/18/15 Warfarin Sodium [Coumadin] 2.5 mg PO DAILY 08/18/15 Omeprazole 20 mg PO DAILY 06/29/16 Review of Systems - Review of Systems Constitutional: reports: Other (Fatigue) Vital Signs: Vital Signs Temperature 97.8 F 07/06/16 07:00 Pulse Rate 90 07/06/16 12:30 Respiratory Rate 19 01/18/17 12:30 Blood Pressure 144/96 07/06/16 12:30 O2 Sat by Pulse Oximetry (%) 96 07/06/16 12:30 Constitutional: Yes: No Distress, Calm Neck: Yes: Supple Respiratory: Yes: Regular, CTA Bilaterally Gastrointestinal: Yes: Normal Bowel Sounds, Soft Cardiovascular: Yes: Tachycardia, Pulse Irregular JVD: Yes Carotid Bruit: No Heart Sounds: Yes: S1, S2 Murmur: Yes: Systolic Murmur, Grade 2 Edema: Yes Edema: LLE: Trace, RLE: Trace - Other Data Labs, Other Data: CBC, BMP 07/06/16 07:11 07/06/16 07:11 INR, PTT INR 3.88 (0.82-1.09) H 07/06/16 07:20 Troponin, BNP 07/06/16 07/06/16 07:11 14:41 Troponin I 0.34 H 0.34 H Troponin, BNP 07/06/16 07/06/16 07:11 14:41 Troponin I 0.34 H 0.34 H Afib @ 116 PVC Ejection Fraction %: LVEF < 40 % Imaging - Results Chest X-ray: Report Reviewed (NAD) Ultrasound: Report Reviewed (Small right effusion, echogenic kidneys) Problem List - Problems (1) Atrial fibrillation Code(s): I48.91 - UNSPECIFIED ATRIAL FIBRILLATION Qualifiers: Atrial fibrillation type: persistent Qualified Code(s): I48.1 - Persistent atrial fibrillation (2) Chronic renal insufficiency Code(s): N18.9 - CHRONIC KIDNEY DISEASE, UNSPECIFIED Qualifiers: Chronic kidney disease stage: stage 4 (severe) Qualified Code(s): N18.4 - Chronic kidney disease, stage 4 (severe) (4) S/P aortic dissection repair Code(s): Z98.89 - OTHER SPECIFIED POSTPROCEDURAL STATES * DO NOT USE * (5) Hypertensive cardiomegaly with heart failure Code(s): I11.0 - HYPERTENSIVE HEART DISEASE WITH HEART FAILURE (6) Mitral regurgitation Code(s): I34.0 - NONRHEUMATIC MITRAL (VALVE) INSUFFICIENCY Qualifiers: Cardiac valve disease etiology: nonrheumatic Qualified Code(s): I34.0 - Nonrheumatic mitral (valve) insufficiency (7) Nonischemic cardiomyopathy Code(s): I42.9 - CARDIOMYOPATHY, UNSPECIFIED Assessment/Plan 07/06/2016 Echo: Dilated severely decreased LV fxn, severe eccentric MR, mod- severe TR, AR, mod-severe DANE 1. Fatigue referable to persistent afib with RVR on coumadin with supratherapeutic INR 2. Type A dissection with tamponade s/p valve sparing hemiarch repair and pericardial window 3. Non-ischemic cardiomyopathy with MR, TR, AR 4. HTN/HCVD 5. CKD 6. AAA 7. DVT 8. Tobacco and former cocaine abuse P:1. Continue Toprol XL 100 bid, add amio 200 bid, change Norvasc to BiDil with uptitration as tolerated 2. Started Lasix, Demadex may be better option, monitor diuretic response, renal fxn and electrolytes, replete K>4.5 Mg>2.5 as needed 3. Coumadin per INR 4. Will benefit from ICD for primary prophylaxis once euvolemic and rate- controlled 5. Thank you for consultative opportunity
[2016-07-06] MEDS ORDERED: ISOSORBIDE MONONITRATE 60 MG TAB.SR.24H (FP) PO ONE (16:24)
[2016-07-06] MEDS: ISOSORBIDE MONONITRATE 30 MG TAB.SR.24H (FP) PO SCH (16:25)
[2016-07-06] MEDS: AMIODARONE HCL 200 MG TABLET (FP) PO SCH ×2 (16:25→22:33)
[2016-07-06] MEDS ORDERED: AMIODARONE HCL 200 MG TABLET (FP) ONE ×2 (16:25→22:23)
--- NOTE | 2016-07-06 20:07 | PN ---
Progress Note, Physician Chief Complaint: Pt seen and examined,Pt feels better No chest pain,sob improved Leg sweliing improved cardiology and renal note appreciated ECHo report shows dialated severly decreased LV function,sever eccentric MR, moderate to severe TR,AR NOn Ischemic cardiopathy with MR,TR,AR renal sonogram echogenic kidney with medical renal disease - Current Medication List Current Medications: Active Medications Amiodarone HCl (Cordarone -) 200 mg PO BID [facility] Last Admin: 07/06/16 16:25 Dose: 200 mg Furosemide (Lasix Injection -) 40 mg IVPUSH DAILY [facility] Last Admin: 07/06/16 09:29 Dose: 40 mg Hydralazine HCl (Apresoline -) 25 mg PO BID [facility] Isosorbide Mononitrate (Imdur -) 30 mg PO DAILY [facility] Last Admin: 07/06/16 16:25 Dose: 30 mg Metoprolol Succinate (Toprol Xl -) 100 mg PO BID [facility] - Objective Vital Signs: Vital Signs Temperature 97.8 F 07/06/16 07:00 Pulse Rate 105 H 07/06/16 17:09 Respiratory Rate 18 07/06/16 17:09 Blood Pressure 139/93 07/06/16 17:09 O2 Sat by Pulse Oximetry (%) 99 07/06/16 17:09 Constitutional: Yes: No Distress Eyes: Yes: Conjunctiva Clear HENT: Yes: Atraumatic, Normocephalic Neck: Yes: Supple Cardiovascular: Yes: Pulse Irregular Respiratory: Yes: Regular, CTA Bilaterally Gastrointestinal: Yes: Normal Bowel Sounds, Soft Musculoskeletal: Yes: WNL Extremities: Yes: WNL Edema: Yes Edema: LLE: Trace, RLE: Trace Peripheral Pulses WNL: Yes Neurological: Yes: WNL ...Motor Strength: WNL Psychiatric: Yes: WNL, Alert Labs: CBC, BMP 07/06/16 07:11 07/06/16 07:11 INR, PTT INR 3.88 (0.82-1.09) H 07/06/16 07:20 - ....Imaging Chest X-ray: Report Reviewed EKG: Report Reviewed Assessment/Plan ATrial fibrillation CHF, CRF s/p aortic dissection repair Fatigue hypercholestrolemia PLAN Continue medications Will f/u Labs will f/u cardiolgy and renal rec monitor urine output monitor PT and INR
[2016-07-06] MEDS ORDERED: hydrALAZINE HCL 25 MG TABLET (FP) ONE (22:23)
[2016-07-06] MEDS: hydrALAZINE HCL 25 MG TABLET (FP) PO SCH (22:33)
[2016-07-07] MEDS ORDERED: ALBUTEROL SO4 2.5/IPRATROPIUM 0.5 INH SOL 3 ML VIAL.NEB. NEB PRN (01:48)
[2016-07-07] MEDS: ZOLPIDEM TARTRATE 5 MG TABLET PO PRN ×2 (01:59→22:16)
[2016-07-07 07:30] LABS: BASOPHIL 0.9 % (0-2.0); EOSINOPHIL 13.7 % (0-4.5); MCHC 33.6 g/dl (32.0-35.9); MEAN CELL VOLUME 89.4 fl (80-96); MEAN PLT VOLUME 9.5 fl (7.5-11.1); NEUTROPHILS 57.5 % (42.8-82.8); PLATELET COUNT 189 K/MM3 (134-434); RDW 14.1 % (11.9-15.9); WHITE BLOOD COUNT 6.8 K/mm3 (4.0-10.0)
[2016-07-07 07:31] LABS: INR 2.45 (0.82-1.09); PROTHROMBIN TIME (PATIENT) 27.4 SEC (9.98-11.88)
[2016-07-07 07:58] LABS: CALCIUM 7.7 mg/dL (8.5-10.1); CREATININE 4.2 mg/dL (0.7-1.3); MAGNESIUM 2.1 mg/dL (1.8-2.4); PHOSPHOROUS 3.7 mg/dL (2.5-4.9)
[2016-07-07 08:07] LABS: THYROID STIMULATING HORMONE 1.85 uIU/ml (0.358-3.74)
[2016-07-07 09:23] LABS: URINE APPEARANCE CLEAR; URINE BILIRUBIN NEGATIVE (NEGATIVE); URINE BLOOD NEGATIVE (NEGATIVE); URINE COLOR LTYELLOW; URINE GLUCOSE (UA) NEGATIVE (NEGATIVE); URINE KETONE NEGATIVE (NEGATIVE); URINE LEUK ESTERASE NEGATIVE (NEGATIVE); URINE NITRITE NEGATIVE (NEGATIVE); URINE UROBILINOGEN NEGATIVE E.U./dl (0.2-1.0)
--- NOTE | 2016-07-07 09:23 | PN ---
Progress Note, Physician Chief Complaint: Pt seen and examined,Pt feels better No chest pain,sob improved Leg sweliing improved cardiology and renal note appreciated ECHo report shows dialated severly decreased LV function,sever eccentric MR, moderate to severe TR,AR NOn Ischemic cardiopathy with MR,TR,AR renal sonogram echogenic kidney with medical renal disease - Current Medication List Current Medications: Active Medications Albuterol/Ipratropium (Duoneb -) 1 amp NEB Q6H PRN Last Admin: 07/07/16 02:19 Dose: 1 amp Amiodarone HCl (Cordarone -) 200 mg PO BID ON LICENSE OF [facility] Last Admin: 07/06/16 22:33 Dose: 200 mg Furosemide (Lasix Injection -) 40 mg IVPUSH DAILY ON LICENSE OF [facility] Last Admin: 07/06/16 09:29 Dose: 40 mg Hydralazine HCl (Apresoline -) 25 mg PO BID ON LICENSE OF [facility] Last Admin: 07/06/16 22:33 Dose: 25 mg Isosorbide Mononitrate (Imdur -) 30 mg PO DAILY ON LICENSE OF [facility] Last Admin: 07/06/16 16:25 Dose: 30 mg Metoprolol Succinate (Toprol Xl -) 100 mg PO BID ON LICENSE OF [facility] Last Admin: 07/06/16 22:34 Dose: 100 mg Zolpidem Tartrate (Ambien -) 10 mg PO HS PRN Last Admin: 07/07/16 01:59 Dose: 10 mg - Objective Vital Signs: Vital Signs Temperature 97.7 F 07/07/16 02:00 Pulse Rate 121 H 07/07/16 02:00 Respiratory Rate 20 07/07/16 02:00 Blood Pressure 138/98 07/07/16 02:00 O2 Sat by Pulse Oximetry (%) 99 07/07/16 06:00 Constitutional: Yes: No Distress Eyes: Yes: Conjunctiva Clear HENT: Yes: Atraumatic, Normocephalic Neck: Yes: Supple, Trachea Midline Cardiovascular: Yes: Pulse Irregular Respiratory: Yes: Regular, CTA Bilaterally Gastrointestinal: Yes: Normal Bowel Sounds, Soft Musculoskeletal: Yes: WNL Extremities: Yes: WNL Edema: LLE: Trace, RLE: Trace Peripheral Pulses WNL: Yes Neurological: Yes: WNL, Alert, Oriented Labs: CBC, BMP 07/07/16 05:35 07/07/16 05:35 INR, PTT INR 2.45 (0.82-1.09) H D 07/07/16 05:35 Assessment/Plan ATrial fibrillation CHF, CRF s/p aortic dissection repair Fatigue hypercholestrolemia INR therapeutic PLAN Continue medications Will f/u Labs will f/u cardiolgy and renal rec monitor urine output monitor PT and INR
[2016-07-07 09:24] LABS: URINE PROTEIN 2+ (NEGATIVE)
[2016-07-07 09:26] LABS: URINE HYALINE CAST 1 /lpf; URINE MUCUS RARE; URINE RBC <1 /hpf (0-3); URINE WBC 1 /hpf (3-5)
[2016-07-07] MEDS: ISOSORBIDE MONONITRATE 30 MG TAB.SR.24H (FP) PO SCH (09:36)
[2016-07-07] MEDS: hydrALAZINE HCL 25 MG TABLET (FP) PO SCH (09:36)
[2016-07-07] MEDS: AMIODARONE HCL 200 MG TABLET (FP) PO SCH ×2 (09:36→22:16)
[2016-07-07] MEDS: METOPROLOL SUCCINATE 100 MG TAB.SR.24H (FP) PO SCH ×3 (09:37→22:16)
--- NOTE | 2016-07-07 09:52 | PN ---
Progress Note, Physician Chief Complaint: Events noted Not in distress History of Present Illness: Patient was seen and examined. Awake and alert. Chart was reviewed Denies chest pain, SOB or palpitation Remains in AF with periods of rapid ventricular response - Current Medication List Current Medications: Active Medications Albuterol/Ipratropium (Duoneb -) 1 amp NEB Q6H PRN Last Admin: 07/07/16 02:19 Dose: 1 amp Amiodarone HCl (Cordarone -) 200 mg PO BID COUNTS INCLUDE 234 BEDS AT THE [facility] Last Admin: 07/07/16 09:36 Dose: 200 mg Furosemide (Lasix Injection -) 40 mg IVPUSH DAILY COUNTS INCLUDE 234 BEDS AT THE [facility] Last Admin: 07/06/16 09:29 Dose: 40 mg Hydralazine HCl (Apresoline -) 25 mg PO BID COUNTS INCLUDE 234 BEDS AT THE [facility] Last Admin: 07/07/16 09:36 Dose: 25 mg Isosorbide Mononitrate (Imdur -) 30 mg PO DAILY COUNTS INCLUDE 234 BEDS AT THE [facility] Last Admin: 07/07/16 09:36 Dose: 30 mg Metoprolol Succinate (Toprol Xl -) 100 mg PO BID COUNTS INCLUDE 234 BEDS AT THE [facility] Last Admin: 07/07/16 09:37 Dose: 100 mg Warfarin Sodium (Coumadin -) 2.5 mg PO ONCE@1800 ONE Stop: 07/07/16 18:01 Zolpidem Tartrate (Ambien -) 10 mg PO HS PRN Last Admin: 07/07/16 01:59 Dose: 10 mg - Objective Vital Signs: Vital Signs Temperature 97.7 F 07/07/16 02:00 Pulse Rate 121 H 07/07/16 02:00 Respiratory Rate 20 07/07/16 02:00 Blood Pressure 138/98 07/07/16 02:00 O2 Sat by Pulse Oximetry (%) 99 07/07/16 06:00 Neck: Yes: Supple Cardiovascular: Yes: Tachycardia, Pulse Irregular, Murmur (2/6 SM), S1, S2 Respiratory: Yes: Diminished Gastrointestinal: Yes: Normal Bowel Sounds, Soft. No: Tenderness Edema: No Additional Findings/Remarks: Review of Systems Cardiovascular: As noted above Respiratory: denies: denies: Cough or Sputum Production Gastrointestinal: denies: Nausea, Vomiting, Constipation or Abdominal Discomfort Musculoskeletal: No Symptoms Reported Endocrine: No Symptoms Reported Labs: CBC, BMP 07/07/16 05:35 07/07/16 05:35 INR, PTT INR 2.45 (0.82-1.09) H D 07/07/16 05:35 Laboratory Results - last 24 hr 07/06/16 07/07/16 07/07/16 14:41 05:35 05:35 WBC 6.8 RBC 3.90 L Hgb 11.7 Hct 34.8 L MCV 89.4 MCHC 33.6 RDW 14.1 Plt Count 189 D MPV 9.5 Neutrophils % 57.5 Lymphocytes % 15.3 Monocytes % 12.6 H Eosinophils % 13.7 H Basophils % 0.9 INR Sodium 142 Potassium 4.1 D Chloride 109 H Carbon Dioxide 26 Anion Gap 7 L BUN 42 H Creatinine 4.2 H Random Glucose 92 Calcium 7.7 L Phosphorus 3.7 D Magnesium 2.1 Creatine Kinase 125 Troponin I 0.34 H TSH 1.85 Urine Color Urine Appearance Urine pH Ur Specific [place] Urine Protein Urine Glucose (UA) Urine Ketones Urine Blood Urine Nitrite Urine Bilirubin Urine Urobilinogen Ur Leukocyte Esterase Urine RBC Urine WBC Ur Epithelial Cells Hyaline Casts Urine Mucus 07/07/16 07/07/16 05:35 09:00 WBC RBC Hgb Hct MCV MCHC RDW Plt Count MPV Neutrophils % Lymphocytes % Monocytes % Eosinophils % Basophils % INR 2.45 H D Sodium Potassium Chloride Carbon Dioxide Anion Gap BUN Creatinine Random Glucose Calcium Phosphorus Magnesium Creatine Kinase Troponin I TSH Urine Color Ltyellow Urine Appearance Clear Urine pH 6.0 Ur Specific [place] 1.018 Urine Protein 2+ H Urine Glucose (UA) Negative Urine Ketones Negative Urine Blood Negative Urine Nitrite Negative Urine Bilirubin Negative Urine Urobilinogen Negative Ur Leukocyte Esterase Negative Urine RBC <1 Urine WBC 1 Ur Epithelial Cells Rare Hyaline Casts 1 Urine Mucus Rare Problem List - Problems (1) Atrial fibrillation Code(s): I48.91 - UNSPECIFIED ATRIAL FIBRILLATION Qualifiers: Atrial fibrillation type: persistent Qualified Code(s): I48.1 - Persistent atrial fibrillation (2) CHF (congestive heart failure) Code(s): I50.9 - HEART FAILURE, UNSPECIFIED Qualifiers: Congestive heart failure type: systolic Congestive heart failure chronicity: acute on chronic Qualified Code(s): I50.23 - Acute on chronic systolic (congestive) heart failure (3) Chronic renal insufficiency Code(s): N18.9 - CHRONIC KIDNEY DISEASE, UNSPECIFIED Qualifiers: Chronic kidney disease stage: stage 4 (severe) Qualified Code(s): N18.4 - Chronic kidney disease, stage 4 (severe) (4) Hypertensive cardiomegaly with heart failure Code(s): I11.0 - HYPERTENSIVE HEART DISEASE WITH HEART FAILURE (5) Mitral regurgitation Code(s): I34.0 - NONRHEUMATIC MITRAL (VALVE) INSUFFICIENCY Qualifiers: Cardiac valve disease etiology: nonrheumatic Qualified Code(s): I34.0 - Nonrheumatic mitral (valve) insufficiency (6) Nonischemic cardiomyopathy Code(s): I42.9 - CARDIOMYOPATHY, UNSPECIFIED (7) S/P aortic dissection repair Code(s): Z98.89 - OTHER SPECIFIED POSTPROCEDURAL STATES * DO NOT USE * (8) Essential hypertension Code(s): I10 - ESSENTIAL (PRIMARY) HYPERTENSION (9) DVT (deep venous thrombosis) Code(s): I82.409 - ACUTE EMBOLISM AND THOMBOS UNSP DEEP VN UNSP LOWER EXTREMITY Qualifiers: DVT location: lower extremity Affected thrombotic vein of extremity: unspecified vein of extremity Laterality: right Chronicity: acute Qualified Code(s): I82.401 - Acute embolism and thrombosis of unspecified deep veins of right lower extremity Assessment/Plan 1. Fatigue referable to persistent AF with RVR on Coumadin 2. Type A dissection with tamponade s/p valve sparing hemiarch repair and pericardial window 3. Non-ischemic dilated cardiomyopathy 4. 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 HTN/HCVD 5. CKD 6. AAA 7. DVT 8. Tobacco and former cocaine abuse PLAN: 1. Continue Toprol XL 100 mg BID and Amiodarone 200 mg BID. Currently on Hydralazine and Imdur 2. Currently on IV Lasix. Monitor renal function and electrolytes 3. Coumadin per INR 4. Will benefit from ICD for primary prophylaxis once euvolemic and rate- controlled. This can be done as outpatient. Patient had seen Dr. Jimy Morales of [facility], but he is contemplating to follow up in our office instead Ray Torres MD
[2016-07-07] MEDS: FUROSEMIDE 40 MG/4 ML INJECTABLE VIAL IVPUSH SCH (10:00)
[2016-07-07 11:43] LABS: SODIUM,RANDOM URINE 26 MMOL/L
[2016-07-07 11:44] LABS: CHLORIDE,RANDOM URINE < 10 MMOL/L
--- NOTE | 2016-07-07 11:49 | HP ---
DATE OF ADMISSION: 07/05/2016 HISTORY: Patient is a 56-year-old male with a history of ascending aortic dissection with tamponade, status post repair; history of angina pectoris; chronic kidney disease, stage 4; hypertension; hypertensive cardiovascular disease; hypercholesterolemia; atrial fibrillation, on anticoagulation; history of DVT; nonischemic cardiomyopathy; former smoker; cocaine abuse, last one month ago; referred to the emergency room from the primary physician's office with complaints of shortness of breath, swelling of the face, bilateral pedal edema, and severe fatigue for further evaluation. Patient was seen in the emergency room on June 29, 2016, for cough, shortness of breath, with thin sputum and found to be having congestive heart failure. Patient was admitted to the floor, but signed out against medical advice. During the previous admission, the patient had a CT chest which showed cardiomegaly and pleural effusion, bilaterally. Patient got diuretics from the ER during that time. The patient came to the emergency room for shortness of breath and fatigue, mild cough, leg swelling, and mild facial swelling. No chest pain. No nausea, no vomiting. No fever, no chills. Mild cough is present. No abdominal pain. No diarrhea. No urinary symptoms. As per the patient, he used cocaine 1 month ago. PAST MEDICAL HISTORY: As mentioned before, history of ascending aortic dissection and repair, chronic kidney disease, hypertension, hypertensive cardiovascular disease, hyperlipidemia, atrial fibrillation, nonischemic cardiomyopathy. SURGICAL HISTORY: History of CABG. PERSONAL HISTORY: Patient is a former smoker, quit 2 months ago. Used to smoke 1-2 cigarettes per day. Drug history: History of cocaine abuse 1 month ago. Occasional ETOH abuse. MEDICATIONS: Patient is on Toprol XL 100 mg p.o. daily, amlodipine 10 mg p.o. daily, Coumadin 2.5 mg p.o. daily, p.o. daily. REVIEW OF SYSTEMS: Constitutional: Patient complains of shortness of breath and fatigue and facial swelling. Cardiovascular: No complaints. Respiratory: Chest congestion and shortness of breath. Gastrointestinal: No nausea, no vomiting. No diarrhea. Genitourinary: History of decreased urinary function. Musculoskeletal: Complains of leg swelling. PHYSICAL EXAMINATION: Vital signs: Temperature 97.9, pulse rate 62, blood pressure 140/80, respirations 18, O2 saturations 99%. Patient was given Lasix 40 mg IV and nitroglycerin paste x1. General: Mild shortness of breath present. Head and neck: Neck supple. Respiratory: Clear to auscultation bilaterally. Regular breath sounds. Gastrointestinal: Normal bowel sounds. Soft. No tenderness. No distention. Cardiovascular: Tachycardia. Pulse irregular. Carotid bruit noted. Heart sounds with second sound. Systolic murmur, grade 2 in the chest, pericardial area. Extremities: Bilateral trace edema. LABORATORY: CBC: WBC 7, hemoglobin 12.7, hematocrit 39.1, platelets 176, INR 4.21, PTT 45.2. Comprehensive: Sodium 144, potassium 3.3, chloride 109, bicarbonate 26, BUN 51, creatinine 4.7, sugar 100, ALT 35, AST 14, troponin-I 0.033, BNP 21,013. CK 143. IMAGING: Chest x-ray showed no evidence of congestive heart failure. No infiltrate. No pleural effusion. Cardiomegaly is present. EKG shows rapid atrial fibrillation with rapid ventricular rate and intraventricular complex and incomplete left bundle branch block. Patient was admitted to the floor. While the patient was waiting for the floor, patient had atrial fibrillation with rapid ventricular rate in the emergency room and heart rate went up to 135 and the blood pressure to 150 systolic. The patient was given Cardizem 50 mg IV in the emergency room and rate controlled. ADMITTING DIAGNOSES: 1. Atrial fibrillation. 2. Congestive heart failure. 3. Chronic renal insufficiency. 4. Hypertension. 5. Cardiomegaly. 6. Status post aortic dissection repair. 7. Mitral regurgitation. 8. Nonischemic cardiomyopathy. PLAN: Cardiology consultation to call. Home medications resumed. Nephrology consultation to call for renal insufficiency. Consultation with the primary care physician given. Coumadin as per INR. Monitor electrolytes and urine output. Patient is stable on the floor. Yuli [id number]
--- NOTE | 2016-07-07 13:33 | PN ---
Progress Note (short form) - Note Progress Note: Renal Follow up for CKD Stage 4/5 Pt seen and examined at the bedside denies sob, chest pain, abd pain, N/V/D good urine output pt noted to be in afib with RVR Vital Signs Temperature 98.2 F 07/07/16 10:00 Pulse Rate 112 H 07/07/16 10:00 Respiratory Rate 18 07/07/16 10:00 Blood Pressure 130/100 07/07/16 10:00 O2 Sat by Pulse Oximetry (%) 99 07/07/16 06:00 Intake & Output 07/04/16 07/05/16 07/06/16 07/07/16 23:59 23:59 23:59 23:59 Intake Total 400 200 Balance 400 200 Weight 185 lb 185 lb Gen: NAD, awake and alert HEENT: NC/AT, MMM, No JVD CVS: RRR, No M/R Lungs: Dec BS at lung bases Abd: soft NT/ND Ext: Trace to 1+ edema CBC, BMP 07/07/16 05:35 07/07/16 05:35 A/P 56 year old Gentleman with PMhx of CKD 4/5, Hypertension, AAA, Afib on a/c, Hx of DVT, CHF, Current smoker who presented to the ED at the request of his PMD with worry for CHF and found to have BUN/cr of 51/4.7 #CKD Stage 4/5 Renal function stable this admission (improved from prior admission) UPCR showed subnephrotic proteinuria (tubular proteinuria) Renal US showed echogenic kidneys consisent with CKD No acute indication for [facility] at this time but will need dialysis planning ( access placement) -> this can be done as outpatient Dose all meds for Cr Cl less then 20 avoid DARYA/ARB/NSAIDs #CHF/AAA/Afib Cardiology following #Hypertension Continue Amlodpine and Metoprolol Amari Arredondo DO
--- NOTE | 2016-07-07 14:30 | PN ---
Progress Note (short form) - Note Progress Note: PULMONARY CONSULTATION DICTATED 07/07/16 IMP CHF NON-ISCHEMIC DILATED CARDIOMYOPATHY AFIB TYPE A AORTIC DISSECTION PULMONARY HTN COPD CKD HTN H/O DVT EOSINOPHILIA H/O TOBACCO AND COCAINE ABUSE PLAN DIURETICS INHALED BRONCHODILATORS SUPPLEMENTAL O2 DAILY WTS INHALED BRONCHODILATORS MONITOR LYTES,CBC,RENAL FUNCTION PFTS OUTPATIENT DR VILLAREAL Problem List - Problems (1) Atrial fibrillation Code(s): I48.91 - UNSPECIFIED ATRIAL FIBRILLATION Qualifiers: Atrial fibrillation type: persistent Qualified Code(s): I48.1 - Persistent atrial fibrillation (2) CHF (congestive heart failure) Code(s): I50.9 - HEART FAILURE, UNSPECIFIED Qualifiers: Congestive heart failure type: systolic Congestive heart failure chronicity: acute on chronic Qualified Code(s): I50.23 - Acute on chronic systolic (congestive) heart failure (3) Chronic renal insufficiency Code(s): N18.9 - CHRONIC KIDNEY DISEASE, UNSPECIFIED Qualifiers: Chronic kidney disease stage: stage 4 (severe) Qualified Code(s): N18.4 - Chronic kidney disease, stage 4 (severe) (4) Hypertensive cardiomegaly with heart failure Code(s): I11.0 - HYPERTENSIVE HEART DISEASE WITH HEART FAILURE (5) Mitral regurgitation Code(s): I34.0 - NONRHEUMATIC MITRAL (VALVE) INSUFFICIENCY Qualifiers: Cardiac valve disease etiology: nonrheumatic Qualified Code(s): I34.0 - Nonrheumatic mitral (valve) insufficiency (6) Nonischemic cardiomyopathy Code(s): I42.9 - CARDIOMYOPATHY, UNSPECIFIED (7) S/P aortic dissection repair Code(s): Z98.89 - OTHER SPECIFIED POSTPROCEDURAL STATES * DO NOT USE * (8) Congestive cardiomyopathy Code(s): I42.0 - DILATED CARDIOMYOPATHY (9) Essential hypertension Code(s): I10 - ESSENTIAL (PRIMARY) HYPERTENSION (11) DVT (deep venous thrombosis) Code(s): I82.409 - ACUTE EMBOLISM AND THOMBOS UNSP DEEP VN UNSP LOWER EXTREMITY Qualifiers: DVT location: lower extremity Affected thrombotic vein of extremity: unspecified vein of extremity Laterality: right Chronicity: acute Qualified Code(s): I82.401 - Acute embolism and thrombosis of unspecified deep veins of right lower extremity (12) Eosinophilia Code(s): D72.1 - EOSINOPHILIA
[2016-07-07] MEDS ORDERED: hydrALAZINE HCL 25 MG TABLET (FP) PO SCH (14:40)
--- NOTE | 2016-07-07 14:53 | CONS ---
PULMONARY CONSULTATION DATE OF CONSULTATION: 07/07/2016 REFERRING PHYSICIAN: Isidro Maria MD The patient is a 56-year-old male with a past medical history of ASHD, status post coronary bypass graft, abdominal aortic aneurysm, congestive heart failure, cardiomyopathy, hypertension, atrial fibrillation, hypercholesterolemia, chronic kidney disease, history of tobacco use. He states that he quit about a year ago, but is still smoking a few cigarettes daily. Admitted to [facility] on July 05 with complaint of increasing shortness of breath, abdominal bloating. Patient was admitted at this time, felt to be having CHF. He was admitted and started on inhaled bronchodilators and started on Lasix. Of note is he was seen in the emergency room on June 29, 2016, secondary to cough, hemoptysis, and shortness of breath, and he had a workup at the time including chest CT which revealed no evidence of any acute pathology, bilateral effusions and cardiomegaly. Patient currently also complains of facial swelling and lower extremity edema. PAST MEDICAL HISTORY: Again, includes ASHD status post coronary bypass graft, history of ascending aortic aneurysm with tamponade status post priyanka-arch repair, angina, chronic kidney disease, hypertension, hyperlipidemia, atrial fibrillation on anticoagulation, hypertensive cardiovascular disease, nonischemic cardiomyopathy, history of DVT, as well as history of substance abuse. REVIEW OF SYSTEMS: Positive orthopnea. Positive dyspnea. No chest pain. No palpitations. Positive occasional cough. No hemoptysis at this time. No fevers. No chills. No weight loss. No night sweats. CURRENT MEDICATIONS: Include Cordarone, Coumadin, Ambien, DuoNeb, Toprol, Apresoline, Lasix, and Imdur. SOCIAL HISTORY: Born in [facility], moved to the [facility] greater than 30 years ago. No occupational exposures. Positive history of tobacco use as well as positive history of substance abuse which he snorts cocaine, last about 1 month ago. PHYSICAL EXAMINATION: General: The patient is a well-developed, well-nourished male, awake, alert, currently in no acute distress. Vital Signs: He is currently afebrile. Blood pressure is 130/100, respiratory rate is 18, O2 saturation is 95% on 2 L, heart rate is 112 and irregular. HEENT: Normocephalic, atraumatic. Neck: Supple. Heart: Irregular, irregular. Normal S1, S2. Chest: Scattered bilateral rhonchi. Abdomen: Soft. Bowel sounds are positive. Extremities: No cyanosis or edema. LABORATORY DATA: BUN 42, creatinine 4.2. Troponin is 0.34. WBC is 6.8, hemoglobin 11.7, hematocrit 44.8 with a platelet count of 189,000. There are 57 polys, 15 lymphs, and 12 monocytes and 13 eosinophils. INR is 2.45. Chest x-ray: No evidence of CHF. There is cardiomegaly. No pulmonary infiltrates are appreciated. Echo reveals severe LV dysfunction and severe global hypokinesis of the left ventricle and moderate dilatation of the left ventricle. There is also moderate pulmonary hypertension with right ventricular systolic pressure of 30-40 mmHg. IMPRESSION: 1. Dyspnea, orthopnea, most likely secondary to decompensated congestive heart failure dilated cardiomyopathy. 2. Rapid atrial fibrillation. 3. History of ascending aortic aneurysm type A dissection. 4. Likely underlying chronic obstructive pulmonary disease with longstanding history of tobacco use. 5. Hypertension. 6. Hypertensive cardiovascular disease. 7. Chronic kidney disease. 8. History of deep venous thrombosis. 9. History of tobacco use as well as substance/cocaine abuse. 10. Eosinophilia, etiology to be determined. PLAN: Continue Lasix, inhaled bronchodilators, supplemental O2, rate control. Obtain followup chest x-rays as well as pulmonary function tests as outpatient and also consider ICD placement as per recommendation per Cardiology. Also, daily weights. Monitor electrolytes. Followup CBC and differential. ZANDRA VILLAREAL M.D. ANIKET/[id number]
[2016-07-07] MEDS ORDERED: WARFARIN NA 2.5 MG TABLET (FP) PO ONE (18:00)
[2016-07-08 07:15] LABS: BASOPHIL 0.8 % (0-2.0); EOSINOPHIL 11.3 % (0-4.5); MCH 29.7 pg (25.7-33.7); MEAN PLT VOLUME 9.3 fl (7.5-11.1); NEUTROPHILS 63.2 % (42.8-82.8); PLATELET COUNT 164 K/MM3 (134-434); RDW 14.1 % (11.9-15.9); WHITE BLOOD COUNT 8.2 K/mm3 (4.0-10.0)
[2016-07-08 07:28] LABS: INR 1.69 (0.82-1.09); PROTHROMBIN TIME (PATIENT) 18.8 SEC (9.98-11.88)
[2016-07-08 07:42] LABS: ALBUMIN 3.3 g/dl (3.4-5.0); CALCIUM 8.1 mg/dL (8.5-10.1); MAGNESIUM 2.2 mg/dL (1.8-2.4)
[2016-07-08 07:46] LABS: BILIRUBIN,TOTAL 0.5 mg/dL (0.2-1.0); CREATININE 4.1 mg/dL (0.7-1.3); TOT PROT 5.9 g/dl (6.4-8.2)
[2016-07-08 09:09] VITALS: BP 128/104; PULSE 130; TEMP 98
--- NOTE | 2016-07-11 19:53 | DS ---
Physical Examination Vital Signs: Vital Signs Temperature 98.0 F 07/08/16 09:08 Pulse Rate 130 H 07/08/16 09:08 Respiratory Rate 18 07/08/16 09:08 Blood Pressure 128/104 07/08/16 09:08 O2 Sat by Pulse Oximetry (%) 97 07/07/16 21:00 Labs: CBC, BMP 07/08/16 05:35 07/08/16 05:35 Discharge Summary Reason For Visit: AFIB, CHRONIC RENAL INSUFFIENCY atrial fibrillation hypertensive cardiology with heart failure CRF S/p aortic dissection repair MR Nonischemic cardiomyopathy HTN Hypercholoestrolemia Hospital Course: 56 yr old male with PMHx of AF,aortic dissecting repair, cardiomyopathy ,CRF,HTN,Hypercholestrolemia admitted with,CHF,elevted INR, renal insufficiency,SOB and cough.pt was monitored in telemetry.Labs shows bun/crea 51/4.7,troponin 0.33,[id number]. x ray chest shows no evidence of CHF,pul infiltrate.EKG shows AF with rapid ventricular response and incomplete LBBB.Pt monitored in telemetry and followed by cardiology,renal and pulmonary.Pt was treated with coumadine amiodarone, metoprolol succinate,apresoline,lasix and imdur.Pt had echo shows dialated severly decreased LV function,severe MR,,severe TR and AR, cardiomyopathy.Cardiology rec ICD placement once Pt become Euvolemic and rate under control.renal sonogram shows medical renal disease.Pt was stable on the floor.pt Sighned out AMA Condition: Guarded - Instructions Referrals: Edda Murray MD [Primary Care Provider] - Disposition: AGAINST MEDICAL ADVICE - Home Medications Comprehensive Discharge Medication List: Ambulatory Orders Metoprolol Succinate [Toprol XL -] 100 mg PO BID 01/17/14 Amlodipine Besylate [Norvasc -] 10 mg PO DAILY 08/18/15 Warfarin Sodium [Coumadin] 2.5 mg PO DAILY 08/18/15 Omeprazole 20 mg PO DAILY 06/29/16
== END 2016-07-08 09:01 | disposition left against medical advice (07) | DRG 308 ==
LOC: JER 19:38 → JERBED 22:39 → J4W 07-06 23:42
PROVIDERS: ADMIT Family Medicine; ATTEND Family Medicine
DX: I48.91 Unspecified atrial fibrillation (principal); I50.23 Acute on chronic systolic (congestive) heart failure; I13.0 Hypertensive heart and chronic kidney disease with heart failure and stage 1 through stage 4 chronic kidney disease, or unspecified chronic kidney disease; N18.4 Chronic kidney disease, stage 4 (severe); I27.2 Other secondary pulmonary hypertension; J44.9 Chronic obstructive pulmonary disease, unspecified; I34.0 Nonrheumatic mitral (valve) insufficiency; I42.9 Cardiomyopathy, unspecified; Z87.891 Personal history of nicotine dependence; E78.5 Hyperlipidemia, unspecified; E87.70 Fluid overload, unspecified; E87.6 Hypokalemia; D72.1 Eosinophilia
CPT/HCPCS: 36415; 71020-TC; 76775-TC; 80048; 80053; 81003; 81015; 82436; 82550; 82553; 82570; 83735; 83880; 84100; 84133; 84156; 84300; 84443; 84484; 85025; 85610; 85730; 93005; 93010; 93306-TC; 94640; 99285-25

== ENCOUNTER 2016-09-19 11:49 | Day surgery (SDC) | payer OTHER ==
[2016-09-16 10:22] VITALS: BMI 27.3
[2016-09-19 12:28] LABS: INR 1.73 (0.82-1.09); PROTHROMBIN TIME (PATIENT) 19.3 SEC (9.98-11.88)
[2016-09-19 12:31] LABS: ACTIVATED PTT 39.7 SECONDS (26.9-34.4)
--- NOTE | 2016-09-19 14:28 | HP ---
Admitting History and Physical - Admission History of Present Illness: 56 year old male with chronic kidney disease who will need dialysis in the near future. He wants to do peritoneal dialysis. - Past Medical History Cardiovascular: Yes: AFIB, Aneurysm (Aortic dissection repaired.), CAD, CHF, HTN , Hyperlipdemia, Mitral Insufficiency - Past Surgical History Past Surgical History: Yes: CABG - Smoking History Smoking history: Former smoker Have you smoked in the past 12 months: Yes Aproximately how many cigarettes per day: 2 If you are a former smoker, when did you quit?: 6 months ago - Alcohol/Substance Use Hx Alcohol Use: No Home Medications - Allergies Allergies/Adverse Reactions: Allergies Allergy/AdvReac Type Severity Reaction Status Date / Time No Known Allergies Allergy Verified 09/19/16 12:19 - Home Medications Home Medications: Ambulatory Orders Metoprolol Succinate [Toprol XL -] 100 mg PO BID 01/17/14 Amlodipine Besylate [Norvasc -] 10 mg PO DAILY 08/18/15 Warfarin Sodium [Coumadin] 2.5 mg PO DAILY 08/18/15 Omeprazole 20 mg PO DAILY PRN 06/29/16 Torsemide [Demadex] 10 mg PO DAILY 09/16/16 Physical Examination Vital Signs: Vital Signs Temperature 97.4 F L 09/19/16 12:24 Pulse Rate 64 09/19/16 12:24 Respiratory Rate 18 09/19/16 12:24 Blood Pressure 123/85 09/19/16 12:24 O2 Sat by Pulse Oximetry (%) 100 09/19/16 12:24 Constitutional: Yes: No Distress Eyes: Yes: EOM Intact HENT: Yes: WNL Neck: Yes: Supple Cardiovascular: Yes: Regular Rate and Rhythm Respiratory: Yes: Regular Gastrointestinal: Yes: Normal Bowel Sounds, Soft Labs: CBC, BMP 09/19/16 12:00 Problem List - Problems (1) Renal failure Assessment/Plan: For placement of PD catheter today. Code(s): N19 - UNSPECIFIED KIDNEY FAILURE
[2016-09-19] MEDS ORDERED: oxyCODONE HCL 5 MG TABLET PO PRN ×2 (15:37→15:38)
--- NOTE | 2016-09-19 15:37 | OP ---
Operative Note - Note: Operative Date: 09/19/16 Pre-Operative Diagnosis: Renal failure Operation: Laparoscopic placement of peritoneal dialysis catheter. Lysis of adhesions. Findings: Adherent omentum to sigmoid colon. Sigmoid adhesion to anterior abdominal wall Post-Operative Diagnosis: Same as Pre-op Surgeon: Jony Velásquez Anesthesiologist/ROLLING MACHINE TENDER: Nazario Ford Anesthesia: General
[2016-09-19] MEDS ORDERED: HYDROmorphone HCL CARPU-JECT 1 MG/1 ML DISP.SYRIN IVPB PRN (15:38)
[2016-09-19] MEDS ORDERED: ACETAMINOPHEN 325 MG TABLET (FP) PO PRN (15:38)
[2016-09-19] MEDS ORDERED: SODIUM CHLORIDE 1,000 ML IV SCH (15:45)
[2016-09-19] MEDS ORDERED: DEXTROSE 5%-0.45% SALINE 1,000 ML IV SCH (15:45)
[2016-09-19 16:08] VITALS: TEMP 97.7
[2016-09-19 17:59] VITALS: BP 116/49; PULSE 90
--- NOTE | 2016-09-25 18:18 | OP ---
DATE OF OPERATION: 09/19/2016 SURGEON: Jony Velásquez MD PROCEDURE: Laparoscopic placement of peritoneal dialysis catheter, laparoscopic lysis of adhesions. PREOPERATIVE DIAGNOSIS: Renal failure, POSTOPERATIVE DIAGNOSIS: Renal failure. ANESTHESIA: General. ANESTHESIOLOGIST: Nazario Ford MD OPERATIVE FINDINGS: There was adherent omentum to the sigmoid colon. There were adhesions between the sigmoid colon and the anterior abdominal wall and the pelvis. OPERATIVE PROCEDURE: Following routine patient identification, general anesthesia was induced. The abdomen was prepped with ChloraPrep. Time-out was performed. A small skin incision was made in the midline above the umbilicus and a 5-mm Visiport placed under direct laparoscopic visualization. Pneumoperitoneum was established with carbon dioxide to 15 mmHg and a 5-mm angled laparoscope was inserted. A 2nd 5-mm port was placed in the left lower quadrant. Adhesions of omentum and sigmoid colon to the abdominal wall were taken down with a Harmonic scalpel. An incision was then made to the left of the umbilicus and an 8-mm bladeless trocar advanced to the underside of the peritoneum. It was then advanced over the peritoneum towards the pelvis, where it then entered at the upper margin of the true pelvis. A swan-neck coiled peritoneal dialysis catheter was then advanced through the sheath with a straightening camilla. It was deployed into the pelvis and the inner cuff placed at the level of the level of the fascial puncture. The other end of the catheter was attached to a curved tunneler which was passed out to the right abdominal wall at the previously identified site of exit. The Luer-Annmarie attachment was placed on the end of the catheter and then 1 L of saline was run into the peritoneal cavity after removing the pneumoperitoneum. This took approximately minutes. The fluid then drained easily and the catheter was capped, leaving 200 mL in the peritoneal cavity. These wounds were closed with interrupted suture of 3-0 Vicryl and subcuticular suture of 4-0 Biosyn. Dermabond glue was applied as dressing. The catheter was dressed with an antibiotic patch and ABD pad. The patient was then awakened from anesthesia and taken to the recovery room in stable condition. Yuli [id number]
== END 2016-09-19 18:40 | disposition home or self-care (01) ==
LOC: JASU-SURG 11:49
PROVIDERS: ATTEND Surgery
PROC: 0WHG43Z Insertion of Infusion Device into Peritoneal Cavity, Percutaneous Endoscopic Approach (ICD-10-PCS; principal; 2016-09-19 14:00)
DX: I12.0 Hypertensive chronic kidney disease with stage 5 chronic kidney disease or end stage renal disease (principal); N19 Unspecified kidney failure
CPT/HCPCS: 36415; 84132; 85610; 85730; 94760

== ENCOUNTER 2016-10-12 10:44 | Day surgery (SDC) | payer OTHER ==
[2016-10-11 17:05] VITALS: BMI 27.3
[2016-10-12 11:51] LABS: INR 1.88 (0.82-1.09)
--- NOTE | 2016-10-12 11:55 | HP ---
Admitting History and Physical - Admission History of Present Illness: 56 year old male with CKD 5. A peritoneal dialysis catheter was placed several weeks ago but has migrated into left side of abdominal cavity and is difficult to flush. - Past Medical History Cardiovascular: Yes: AFIB, Aneurysm (Aortic dissection repaired.), CAD, CHF, HTN , Hyperlipdemia, Mitral Insufficiency - Past Surgical History Past Surgical History: Yes: CABG - Smoking History Smoking history: Former smoker Have you smoked in the past 12 months: Yes Aproximately how many cigarettes per day: 2 If you are a former smoker, when did you quit?: 6 months ago - Alcohol/Substance Use Hx Alcohol Use: No Home Medications - Allergies Allergies/Adverse Reactions: Allergies Allergy/AdvReac Type Severity Reaction Status Date / Time No Known Allergies Allergy Verified 10/12/16 11:25 - Home Medications Home Medications: Ambulatory Orders Metoprolol Succinate [Toprol XL -] 100 mg PO BID 01/17/14 Amlodipine Besylate [Norvasc -] 10 mg PO DAILY 08/18/15 Warfarin Sodium [Coumadin] 2.5 mg PO DAILY 08/18/15 Omeprazole 20 mg PO DAILY PRN 06/29/16 Torsemide [Demadex] 10 mg PO DAILY 09/16/16 Physical Examination Vital Signs: Vital Signs Temperature 98.2 F 10/12/16 11:27 Pulse Rate 83 10/12/16 11:27 Respiratory Rate 16 10/12/16 11:27 Blood Pressure 112/62 10/12/16 11:27 O2 Sat by Pulse Oximetry (%) 95 10/12/16 11:27 Constitutional: Yes: No Distress Eyes: Yes: WNL, EOM Intact HENT: Yes: Normocephalic Neck: Yes: Supple Cardiovascular: Yes: Regular Rate and Rhythm Respiratory: Yes: Regular Gastrointestinal: Yes: Soft, Other (RLQ catheter site is clean) Labs: CBC, BMP 10/12/16 11:10 Problem List - Problems (1) Malposition of peritoneal dialysis catheter Assessment/Plan: Plan laparoscopic repositioning of catheter. Code(s): T85.621A - DISPLACEMENT OF INTRAPERITONEAL DIALYSIS CATHETER, INIT (2) CKD (chronic kidney disease) stage 5, GFR less than 15 ml/min Code(s): N18.5 - CHRONIC KIDNEY DISEASE, STAGE 5
[2016-10-12] MEDS ORDERED: PROPOFOL 20 ML ONE ×2 (11:56)
[2016-10-12] MEDS ORDERED: ROCURONIUM BROMIDE 50 MG/5 ML VIAL ONE (11:56)
[2016-10-12] MEDS ORDERED: MIDAZOLAM HCL 2 MG/2 ML SINGLE DOSE VIAL ONE (11:57)
[2016-10-12] MEDS ORDERED: ceFAZolin SODIUM 1 GM VIAL IVPB ONE (12:24)
[2016-10-12] MEDS ORDERED: ONDANSETRON 4 MG/2 ML VIAL ONE ×2 (12:25→13:04)
[2016-10-12] MEDS ORDERED: DEXAMETHASONE SOD PHOSPHATE 4 MG/1 ML VIAL ONE (12:25)
[2016-10-12] MEDS ORDERED: ceFAZolin SODIUM 1 GM VIAL ONE (12:25)
[2016-10-12] MEDS ORDERED: NEOSTIGMINE METHYLSULFATE 0.5 MG/ML - 10 ML MDV ONE (13:00)
[2016-10-12] MEDS ORDERED: GLYCOPYRROLATE 0.2 MG/1 ML VIAL ONE (13:00)
[2016-10-12] MEDS ORDERED: oxyCODONE HCL 5 MG TABLET PO PRN (13:12)
[2016-10-12] MEDS ORDERED: ACETAMINOPHEN 325 MG TABLET (FP) PO PRN (13:12)
--- NOTE | 2016-10-12 13:12 | OP ---
Operative Note - Note: Operative Date: 10/12/16 Pre-Operative Diagnosis: Malpositioned peritoneal Dialysis Catheter Operation: Laparoscopy. Reposition PD catheter Findings: PD catheter lying in left lower quadrant between intestinal loops. Post-Operative Diagnosis: Same as Pre-op Surgeon: Jony Velásquez Surgical Processor: Hayley Canchola Anesthesiologist/SUPERVISOR SPECIAL EDUCATION: Ruchi Brasher Anesthesia: General
[2016-10-12] MEDS ORDERED: ONDANSETRON 4 MG/2 ML VIAL IVPUSH PRN (13:17)
[2016-10-12] MEDS ORDERED: SODIUM CHLORIDE 1,000 ML IV SCH (13:30)
[2016-10-12 13:40] VITALS: TEMP 97.9
[2016-10-12] MEDS ORDERED: oxyCODONE HCL 5 MG TABLET ONE (14:18)
[2016-10-12 17:29] VITALS: BP 111/73; PULSE 74
--- NOTE | 2016-10-13 13:20 | OP ---
DATE OF OPERATION: 10/12/2016 SURGEON: Jony Velásquez MD AUTO PARTS PROFESSIONAL: KYLE Benito PROCEDURE: Laparoscopy with repositioning of peritoneal dialysis catheter. PREOPERATIVE DIAGNOSIS: Renal failure with malposition of peritoneal dialysis catheter. POSTOPERATIVE DIAGNOSIS: Renal failure with malposition of peritoneal dialysis catheter. ANESTHESIA: General. ANESTHESIOLOGIST: Ruchi Brasher MD OPERATIVE FINDINGS: The preexisting peritoneal dialysis catheter tip was lying in the left lower quadrant under loops of small intestine. After repositioning, the catheter was correctly placed in the pelvis. OPERATIVE PROCEDURE: Following routine patient identification, general anesthesia was induced. The abdomen and peritoneal dialysis catheter were prepped with ChloraPrep. A surgical time-out was performed. Marcaine 0.5% was infiltrated in the midline of the upper abdomen. The pneumoperitoneum was established by connecting the tubing to the peritonea dialysis catheter, and once there was adequate pneumoperitoneum a 5-mm trocar was placed through a small incision in the midline under direct laparoscopic visualization. A 5-mm angled laparoscope was then used to explore the abdomen. A second 5-mm port was placed under direct vision in the left abdominal wall. Using a non-crushing grasper, the catheter was elevated out of the left lower quadrant and positioned in the pelvis. In order to keep it from flipping back to the left side, a suture was placed with a spinal needle in the midline above the pubic symphysis, around the catheter in the belly and brought out with a suture passer through the same incision. This was a 2-0 PDS suture and it was tied loosely so as not to constrict the tubing. This left the coiled portion of the peritoneal dialysis catheter well positioned in the pelvis. A liter of saline was then run into the patient after removing the pneumoperitoneum and this was accomplished in under 4 minutes. The fluid was then removed with good drainage. All ports were then removed. The incisions were closed with subcutaneous sutures of 3-0 Vicryl and subcuticular suture of 4-0 Biosyn. Dermabond glue was applied to the wounds and the sterile dressings over that, and the patient was taken to the recovery area in stable condition. Yuli SO/[id number]
== END 2016-10-12 17:40 | disposition home or self-care (01) ==
LOC: JASU-SURG 10:44
PROVIDERS: ATTEND Surgery
PROC: 0WHG43Z Insertion of Infusion Device into Peritoneal Cavity, Percutaneous Endoscopic Approach (ICD-10-PCS; principal; 2016-10-12 12:00)
DX: T85.621A Displacement of intraperitoneal dialysis catheter, initial encounter (principal); I12.0 Hypertensive chronic kidney disease with stage 5 chronic kidney disease or end stage renal disease; N18.6 End stage renal disease; Z99.2 Dependence on renal dialysis; Z87.891 Personal history of nicotine dependence
CPT/HCPCS: 36415; 84132; 85610; 94760

== ENCOUNTER 2016-11-23 10:58 | Emergency (ER) | payer OTHER ==
[2016-11-23 11:07] VITALS: BMI 26.6
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
[2016-11-23] MEDS ORDERED: OXYCODONE/APAP 5/325MG COMBO TABLET PO ONE (11:46)
[2016-11-23] MEDS ORDERED: OXYCODONE/APAP 5/325MG COMBO TABLET ONE (11:49)
[2016-11-23 12:51] LABS: INR 3.4 (0.82-1.09); PROTHROMBIN TIME (PATIENT) 38.4 SEC (9.98-11.88)
[2016-11-23 14:38] VITALS: BP 101/77; PULSE 89; TEMP 98.6
== END 2016-11-23 14:25 | disposition home or self-care (01) ==
LOC: JER 10:58
DX: S70.12XA Contusion of left thigh, initial encounter (principal); V01.00XA Pedestrian on foot injured in collision with pedal cycle in nontraffic accident, initial encounter; Y92.414 Local residential or business street as the place of occurrence of the external cause; Y93.01 Activity, walking, marching and hiking; I48.91 Unspecified atrial fibrillation; Z79.01 Long term (current) use of anticoagulants; I25.10 Atherosclerotic heart disease of native coronary artery without angina pectoris; Z98.61 Coronary angioplasty status; I10 Essential (primary) hypertension; Z95.1 Presence of aortocoronary bypass graft; Z86.79 Personal history of other diseases of the circulatory system
CPT/HCPCS: 36415; 76882; 85610; 99283-25

== ENCOUNTER 2017-01-31 12:10 | Emergency (ER) | payer OTHER ==
[2017-01-31 12:16] VITALS: BMI 27.8
[2017-01-31 13:18] LABS: BASOPHIL 1.2 % (0-2.0); EOSINOPHIL 10.8 % (0-4.5); MCH 30.2 pg (25.7-33.7); MCHC 33.2 g/dl (32.0-35.9); MEAN CELL VOLUME 90.9 fl (80-96); MEAN PLT VOLUME 8.7 fl (7.5-11.1); PLATELET COUNT 181 K/MM3 (134-434); RDW 15.4 % (11.9-15.9); WHITE BLOOD COUNT 9.1 K/mm3 (4.0-10.0)
--- NOTE | 2017-01-31 13:38 | PDOC ---
History of Present Illness - General Chief Complaint: Nasal Bleeding Stated Complaint: NOSE BLEED,ON COUMADIN Time Seen by Provider: 01/31/17 12:45 History Source: Patient - History of Present Illness Associated Symptoms: denies: cough, fever/chills, headaches, nausea/vomiting, weakness Past History - Past Medical History Allergies/Adverse Reactions: Allergies Allergy/AdvReac Type Severity Reaction Status Date / Time No Known Allergies Allergy Verified 01/31/17 12:12 Home Medications: Ambulatory Orders Metoprolol Succinate [Toprol XL -] 100 mg PO BID 01/17/14 Warfarin Sodium [Coumadin] 2.5 mg PO DAILY 08/18/15 Torsemide [Demadex] 10 mg PO DAILY 09/16/16 Cinacalcet HCl [Sensipar] 30 mg PO DAILY 01/31/17 Ciprofloxacin [Cipro (Restricted To Id)] 250 mg PO DAILY 01/31/17 Ferric Citrate [Auryxia] 210 mg PO DAILY 01/31/17 Losartan Potassium 50 mg PO DAILY 01/31/17 Potassium Chloride 20 meq PO DAILY 01/31/17 Anemia: No Asthma: No Cancer: No Cardiac Disorders: Yes (CARDIOMYOPATHY, AAA, AFIB) CVA: No COPD: No CHF: No Dementia: No Diabetes: No Dialysis: Yes (P.DIALYSIS) GI Disorders: No Disorders: Yes HTN: Yes Hypercholesterolemia: No Kidney Stones: No Liver Disease: No Suicide Attempt (Hx): No Seizures: No Thyroid Disease: No - Surgical History Abdominal Surgery: Yes (P.DIALYSIS CATH) Appendectomy: No Cardiac Surgery: Yes (CARDIAC CATH, bypass) Cholecystectomy: No Lung Surgery: No Neurologic Surgery: No Orthopedic Surgery: Yes (surgery to right elbow 10 years ago) - Reproductive History Testicular Surgery: No - Immunization History Td Vaccination: Yes Immunization Up to Date: Yes - Psycho/Social/Smoking Cessation Hx Anxiety: No Suicidal Ideation: No Smoking History: Never smoked Have you smoked in the past 12 months: Yes Number of Cigarettes Smoked Daily: 2 If you are a former smoker, when did you quit?: 6 months ago Cigars Per Day: 0 Information on smoking cessation initiated: No Hx Alcohol Use: No Drug/Substance Use Hx: No Substance Use Type: None Hx Substance Use Treatment: Yes Review of Systems - Review of Systems Constitutional: No: Chills, Fever HEENTM: Yes: Nose Bleeding Respiratory: No: Cough Neurological: No: Headache, Dizziness *Physical Exam - Vital Signs Last Vital Signs Temp Pulse Resp BP Pulse Ox 98.0 F 105 H 18 138/110 100 01/31/17 12:12 01/31/17 12:12 01/31/17 12:12 01/31/17 12:12 01/31/17 12:12 - Physical Exam General Appearance: Yes: Appropriately Dressed. No: Apparent Distress HEENT: positive: Normal Voice, Other (small amount of fresh BRB in R nares, no active brisk bleed, no vessel, trace brb to oropharynx) Neck: positive: Supple Respiratory/Chest: negative: Respiratory Distress Integumentary: positive: Dry, Warm Neurologic: positive: Fully Oriented, Alert, Normal Mood/Affect ED Treatment Course - LABORATORY CBC & Chemistry Diagram: 01/31/17 13:00 01/31/17 13:00 Medical Decision Making - Medical Decision Making 01/31/17 13:36 56-year-old male history of hypertension, CABG, afib on coumadin, end-stage renal disease on peritoneal dialysis, on cipro for UTI, presents with epistaxis. Patient states yesterday after sneezing, he began bleeding from right nares. States states bleeding improved on compression at home but that he continued to bleed intermittently and that bleeding reoccur today. Also feels warmness in the back of his throat. No headache, dizziness, nausea or vomiting. Of note, patient states his INR was supratherapeutic approximately 1 month ago. Management at that time was to dc meds for 2-3 days and then resume.No h/o prior epistaxis See exam Epistaxis on coumadin BP 138/110, w/ fresh blood in R nares, no further bleeding s/p compression for 10 minutes in ED, no identifiable vessel, has trace BRB to oropharynx -labs -coags -period of obs 01/31/17 13:40 01/31/17 13:44 01/31/17 14:11 Calcium of 6.9. Patient aware and states he is known to have low calcium and elevated phosphorus and recently started on ferric citrate and another medication he cannot remember. Refusing IV repletion of calcium here and refuses EKG. Of note, patient with no neurological symptoms and asymptomatic from hypocalcemic standpoint. Will discuss with patient's ceramic artist, Dr. Irish Greenwood. Of note, epistaxis resolved with compression and patient has not continued to bleed. INR still pending 01/31/17 14:17 01/31/17 14:[address] Arredondo of renal, states patient is also on cinacalcet for high PTH, which is known to cause hypocalcemia (corrected, ca is ~7.4). States prior to this, calcium levels were much better. States if patient is not symptomatic from hypocalcemic point of view and EKG unremarkable, pt can be discharged to discontinue cinacalcet and follow-up in PD clinic this week for rpt labs. Patient informed of update, and agrees to EKG at this time. Of note , INR still pending and epistaxis has not reoccurred 01/31/17 14:39 INR 6 per labs. Will discuss management w/ pmd as to whether to stop coumadin for several days only or stop coumadin for several days and give vit K 01/31/17 14:[address] Murray who has been checking patient's INR every monthly. States patient should be told to stop Coumadin for 2 days and follow- up in the office. Of note EKG done and . Pt stable for discharge w/ strict return precautions 01/31/17 14:49 01/31/17 14:55 01/31/17 15:24 EKG w/ afib to 107. HR on rpt vitals in the 60s. Pt has no CP, SOB or dizziness. No intervention needed in ED as per ED attending. Repeat blood pressure 130s/ 118. Patient admits he did not take his arm this a.m. I offered to give patient his dose now. The patient refuses and states he will take his medication as soon as he gets home *DC/Admit/Observation/Transfer Diagnosis at time of Disposition: Epistaxis, Hypocalcemia - Discharge Dispostion Disposition: HOME Condition at time of disposition: Improved - Referrals Referrals: Edda Murray MD [Primary Care Provider] - - Patient Instructions Printed Discharge Instructions: Nosebleed, DI for Hypocalcemia Additional Instructions: Your INR today was 6, which is most likely the cause of your nosebleed. Please stop Coumadin for the next 2 days and follow-up with Dr. Murray in clinic on . If bleeding recurs and you're not able to stop it with nasal compression as demonstrated to you in ED, return to ED immediately. Your low calcium is most likely caused by the cinacalcet you were started on recently. Please discontinue medication and follow-up in peritoneal dialysis clinic this week
[2017-01-31 13:49] LABS: PROTHROMBIN TIME (PATIENT) 68.6 SEC (9.98-11.88)
[2017-01-31 13:53] LABS: ALBUMIN 3.3 g/dl (3.4-5.0); ANION GAP 15 (8-16); BILIRUBIN,TOTAL 0.6 mg/dL (0.2-1.0); CO2 23 mmol/L (21-32); CREATININE 6.7 mg/dL (0.7-1.3); GLUCOSE,RANDOM 108 mg/dL (74-106); SGOT/AST 13 U/L (15-37); SGPT/ALT 49 U/L (12-78); TOT PROT 6.1 g/dl (6.4-8.2)
[2017-01-31 13:54] LABS: ALK PHOS 80 U/L (45-117)
[2017-01-31 13:58] LABS: CALCIUM 6.9 mg/dL (8.5-10.1)
[2017-01-31 14:37] LABS: INR 6.01 (0.82-1.09)
[2017-01-31 15:00] LABS: PHOSPHOROUS 6.1 mg/dL (2.5-4.9)
--- NOTE | 2017-01-31 15:07 | PDOC ---
*Physical Exam - Vital Signs Last Vital Signs Temp Pulse Resp BP Pulse Ox 98.0 F 105 H 18 138/110 100 01/31/17 12:12 01/31/17 12:12 01/31/17 12:12 01/31/17 12:12 01/31/17 12:12 ED Treatment Course - LABORATORY CBC & Chemistry Diagram: 01/31/17 13:00 01/31/17 13:00 - ADDITIONAL ORDERS Additional order review: Laboratory Results 01/31/17 01/31/17 01/31/17 14:14 13:00 13:00 INR 6.01 H* D Sodium 143 Potassium 3.4 L Chloride 105 Carbon Dioxide 23 Anion Gap 15 BUN 73 H Creatinine 6.7 H Creat Clearance w eGFR 8.61 Random Glucose 108 H D Calcium 6.9 L* Phosphorus Cancelled 6.1 H D Total Bilirubin 0.6 D AST 13 L D ALT 49 D Alkaline Phosphatase 80 Total Protein 6.1 L Albumin 3.3 L D 01/31/17 13:00 RBC 4.49 MCV 90.9 MCHC 33.2 RDW 15.4 MPV 8.7 Neutrophils % 63.0 Lymphocytes % 15.7 Monocytes % 9.3 Eosinophils % 10.8 H Basophils % 1.2 Medical Decision Making - Medical Decision Making 01/31/17 15:37 Agree with PA's evaluation, assessment, and plan. 56M with afib on coumadin presenting with epistaxis, now controlled with just pressure. Found to have supratherapeutic INR of 6. - Spoke with pt's PMD who recommended holding coumadin for 2 days and following up in clinic *DC/Admit/Observation/Transfer Diagnosis at time of Disposition: Epistaxis, Hypocalcemia - Discharge Dispostion Disposition: HOME Condition at time of disposition: Improved - Referrals Referrals: Edda Murray MD [Primary Care Provider] - - Patient Instructions Printed Discharge Instructions: Nosebleed, DI for Hypocalcemia Additional Instructions: Your INR today was 6, which is most likely the cause of your nosebleed. Please stop Coumadin for the next 2 days and follow-up with Dr. Murray in clinic on . If bleeding recurs and you're not able to stop it with nasal compression as demonstrated to you in ED, return to ED immediately. Your low calcium is most likely caused by the cinacalcet you were started on recently. Please discontinue medication and follow-up in peritoneal dialysis clinic this week - Post Discharge Activity
[2017-01-31 15:27] VITALS: BP 139/105; PULSE 65; TEMP 98.4
--- NOTE | 2017-02-01 16:42 | EKG ---
Test Reason : Blood Pressure : / mmHG Vent. Rate : 107 BPM Atrial Rate : 091 BPM P-R Int : 000 ms QRS Dur : 106 ms QT Int : 368 ms P-R-T Axes : 000 -41 208 degrees QTc Int : 491 ms ATRIAL FIBRILLATION WITH RAPID VENTRICULAR RESPONSE LEFT AXIS DEVIATION SEPTAL INFARCT , AGE UNDETERMINED ABNORMAL ECG WHEN COMPARED WITH ECG OF 05-JUL-2016 20:29, INCOMPLETE LEFT BUNDLE BRANCH BLOCK IS NO LONGER PRESENT T WAVE INVERSION MORE EVIDENT IN LATERAL LEADS Confirmed by HIPOLITO SANCHEZ MD ([id number] on 02/01/2017 4:41:43 PM Referred By: Confirmed By:HIPOLITO SANCHEZ MD
== END 2017-01-31 15:27 | disposition home or self-care (01) ==
LOC: JER 12:10
DX: R04.0 Epistaxis (principal); E83.51 Hypocalcemia; I48.91 Unspecified atrial fibrillation; I71.4 Abdominal aortic aneurysm, without rupture; I42.9 Cardiomyopathy, unspecified; I12.0 Hypertensive chronic kidney disease with stage 5 chronic kidney disease or end stage renal disease; N18.6 End stage renal disease; Z99.2 Dependence on renal dialysis; Z95.1 Presence of aortocoronary bypass graft; Z79.01 Long term (current) use of anticoagulants; N39.0 Urinary tract infection, site not specified
CPT/HCPCS: 36415; 80053; 84100; 85025; 85610; 86850; 86900; 86901; 93005; 93010; 99282-25

== ENCOUNTER 2017-03-20 13:06 | Day surgery (SDC) | payer OTHER ==
[2017-03-16 12:00] VITALS: BMI 28.0
[2017-03-20] MEDS ORDERED: BUPIVACAINE HCL/PF 0.5% (5MG/ML) 10 ML VIAL ONE (14:49)
[2017-03-20] MEDS ORDERED: MIDAZOLAM HCL 2 MG/2 ML SINGLE DOSE VIAL ONE (14:51)
--- NOTE | 2017-03-20 15:09 | HP ---
[facility]ellite [facility] - Chief Complaint History of Present Illness: 57 year old male ESRD on peritoneal dialysis. His catheter is not functioning normally and requires revision. No abdominal pain reported. History Source: Patient Limitations to Obtaining History: No Limitations - Past Medical History Allergies/Adverse Reactions: Allergies Allergy/AdvReac Type Severity Reaction Status Date / Time No Known Allergies Allergy Verified 03/20/17 13:47 Cardiovascular: Yes: AFIB, Aneurysm (Aortic dissection repaired.), CAD, CHF, HTN , Hyperlipdemia, Mitral Insufficiency - Current Medications Current Medications: Home Medications Medication Instructions Recorded Metoprolol Succinate [Toprol XL -] 100 mg PO BID 01/17/14 Warfarin Sodium [Coumadin] 1 mg PO DAILY 08/18/15 Torsemide [Demadex] 10 mg PO DAILY 09/16/16 Ferric Citrate [Auryxia] 210 mg PO DAILY 01/31/17 Losartan Potassium 50 mg PO DAILY 01/31/17 Potassium Chloride 20 meq PO DAILY 01/31/17 Satellite Physical Exam - Physical Examination Vital Signs: Vital Signs Period Temp Pulse Resp BP Sys/Malhotra Pulse Ox Last 24 Hr 97.8 F 86 20 126/72 97 General Appearance: Alert & Oriented x3 ENT: Clear Lung: Clear to auscultation Heart: Regular rate & rhythm Abdomen: Soft, Other (PD catheter site clean and dry.) Satellite Impression/Plan - Impression/Plan Impression: Malfunction of peritoneal dialysis catheter Operative Procedure: Laparoscopy, revision of PD catheter Date to be Performed: 03/20/17
[2017-03-20] MEDS ORDERED: ETOMIDATE 20 MG/10 ML AMPUL IVPUSH ONE ×2 (15:10→15:49)
[2017-03-20] MEDS ORDERED: ROCURONIUM BROMIDE 50 MG/5 ML VIAL ONE (15:12)
[2017-03-20] MEDS ORDERED: LIDOCAINE HCL 2% JELLY (5 ML/TUBE) ONE (15:16)
[2017-03-20] MEDS ORDERED: LIDOCAINE HCL/PF 2% SDV 5ML VIAL ONE (15:16)
[2017-03-20] MEDS ORDERED: BUPIVACAINE HCL/PF 0.5% (5MG/ML) 10 ML VIAL IJ ONE (15:34)
[2017-03-20] MEDS ORDERED: DEXAMETHASONE SOD PHOSPHATE 4 MG/1 ML VIAL ONE (15:49)
[2017-03-20] MEDS ORDERED: GLYCOPYRROLATE 0.2 MG/1 ML VIAL ONE (15:49)
[2017-03-20] MEDS ORDERED: NEOSTIGMINE METHYLSULFATE 0.5 MG/ML - 10 ML MDV ONE (15:51)
--- NOTE | 2017-03-20 15:59 | OP ---
Operative Note - Note: Operative Date: 03/20/17 Pre-Operative Diagnosis: Malfunction PD catheter Operation: Laparoscopic reposition PD catheter Findings: PD catheter lying in pelvic small bowel loops Post-Operative Diagnosis: Same as Pre-op Surgeon: Jony Velásquez Anesthesiologist/W[employer] CAPTAIN: Bebe Bonilla MD Anesthesia: General
[2017-03-20] MEDS ORDERED: oxyCODONE HCL 5 MG TABLET PO PRN (16:00)
[2017-03-20] MEDS ORDERED: ACETAMINOPHEN 325 MG TABLET (FP) PO PRN (16:00)
[2017-03-20] MEDS ORDERED: ONDANSETRON 4 MG/2 ML VIAL IVPUSH PRN (16:13)
[2017-03-20 17:38] VITALS: TEMP 97.2
[2017-03-20] MEDS ORDERED: oxyCODONE HCL 5 MG TABLET ONE (18:38)
[2017-03-20 19:08] VITALS: BP 130/93; PULSE 92
== END 2017-03-20 19:25 | disposition home or self-care (01) ==
LOC: JASU-SURG 13:06
PROVIDERS: ATTEND Surgery
PROC: 0WWG43Z Revision of Infusion Device in Peritoneal Cavity, Percutaneous Endoscopic Approach (ICD-10-PCS; principal; 2017-03-20 15:00)
DX: T85.898A Other specified complication of other internal prosthetic devices, implants and grafts, initial encounter (principal); I12.0 Hypertensive chronic kidney disease with stage 5 chronic kidney disease or end stage renal disease; N18.6 End stage renal disease
CPT/HCPCS: 36415; 84132; 94760